=== PATIENT | female | born 1940 | race Caucasian/White ===

== ENCOUNTER 2016-03-13 20:02 | Inpatient (IN) | payer OTHER ==
[~2016-03-13] VITALS: Ht 157.5 cm; Wt 68.9 kg
[2016-03-13] MEDS ORDERED: MoRPHine SULFATE 4 MG/ML 1 ML CARP\\VIAL IV STA (20:34)
[2016-03-13 20:59] LABS: BASO % 0.2 %; BASO ABS # 0.02 K/uL (0-0.2); COMPLETE YES; EOS % 0.6 %; IG% 0.5 %; LYMPH ABS # 2.03 K/uL (1.2-3.4); MEAN CELL VOLUME 86.1 fL (80-100); MEAN CORPUSCULAR HEMOGLOBIN 28.8 pg (25-34); MEAN CORPUSCULAR HGB CONC 33.4 g/dl (32-36); MEAN PLATELET VOLUME 9.5 fL (7.4-10.4); MONO % 4.7 %; PLATELET COUNT 196 K/uL (130-400); RED BLOOD COUNT 4.76 M/uL (4.2-5.4); WHITE BLOOD COUNT 12.67 K/uL (4.8-10.8)
[2016-03-13 21:07] LABS: PROTHROMBIN TIME (PATIENT) 10.6 SECONDS (9.0-12.0)
[2016-03-13 21:19] LABS: BUN/CREATININE RATIO 13.9 (10-20); CALCIUM 9.3 mg/dl (8.5-10.1); CREATININE 0.98 mg/dl (0.60-1.20); POTASSIUM 3.9 mmol/L (3.5-5.1)
[2016-03-13 21:22] LABS: ALB/GLOB RATIO 1.2 (0.9-2)
--- NOTE | 2016-03-13 22:10 | DIAGNOSTIC IMAGING REPORT ---
PELVIS 1 OR 2 VIEW ROUTINE CLINICAL HISTORY: Left hip pain following fall. COMPARISON STUDY: No previous studies for comparison. FINDINGS: The sacroiliac joints and symphysis pubis are intact. There is a displaced angulated acute left femoral neck fracture. No additional fractures are identified on this exam. IMPRESSION: Moderately displaced acute left femoral neck fracture. Electronically signed by: Raji Cantu M.D. 03/13/2016 10:08 PM Dictated Date/Time: 03/13/2016 10:06 PM
--- NOTE | 2016-03-13 22:11 | DIAGNOSTIC IMAGING REPORT ---
LEFT FEMUR 2 VIEWS ROUTINE CLINICAL HISTORY: Left hip pain following fall. COMPARISON: None FINDINGS: There is an acute moderately displaced left femoral neck fracture. No additional left femoral fractures are identified on this exam. IMPRESSION: Acute moderately displaced left femoral neck fracture. Electronically signed by: Raji Cantu M.D. 03/13/2016 10:09 PM Dictated Date/Time: 03/13/2016 10:08 PM
--- NOTE | 2016-03-13 22:25 | DIAGNOSTIC IMAGING REPORT ---
CHEST ONE VIEW PORTABLE CLINICAL HISTORY: Fall. COMPARISON STUDY: No previous studies for comparison. FINDINGS: There is no pneumothorax or pleural effusion. There is no evidence of pulmonary edema. No consolidation is identified. There is borderline cardiomegaly. IMPRESSION: 1. No acute findings. 2. Borderline cardiomegaly. Electronically signed by: Raji Cantu M.D. 03/13/2016 10:23 PM Dictated Date/Time: 03/13/2016 10:22 PM
[2016-03-13] MEDS ORDERED: MULT-240 PO (22:29)
[2016-03-13] MEDS ORDERED: SIMV20TA2 PO (22:29)
[2016-03-13] MEDS ORDERED: METO1TAB69 PO (22:29)
[2016-03-13] MEDS ORDERED: ASPI81TA28 PO (22:29)
[2016-03-13] MEDS ORDERED: AMLO-114 PO (22:29)
[2016-03-13] MEDS ORDERED: PRVHFAIN INH (22:29)
[2016-03-13] MEDS ORDERED: DOCU-94 PO (22:29)
[2016-03-13] MEDS ORDERED: CARB25TA12 PO (22:29)
[2016-03-13] MEDS ORDERED: LEVO25TA5 PO (22:29)
[2016-03-13] MEDS ORDERED: GLYCDRO6 OP (22:29)
[2016-03-13] MEDS ORDERED: CLR10 PO (22:29)
[2016-03-13] MEDS ORDERED: ALEN70TA4 PO (22:29)
[2016-03-13] MEDS ORDERED: BUPR-267 PO (22:29)
[2016-03-13] MEDS ORDERED: RANI300T2 PO (22:29)
[2016-03-13 22:48] LABS: MAGNESIUM 2.2 mg/dl (1.8-2.4)
[2016-03-13] MEDS ORDERED: HYDROmorphone INJ 0.5 MG/0.5 ML SYR IV PRN (23:00)
[2016-03-13] MEDS ORDERED: ONDANSETRON INJ 2 MG/ML 2 ML VIAL IV PRN (23:00)
[2016-03-13] MEDS ORDERED: ARTIFICIAL TEARS OP SOLN OP PRN ×2 (23:00)
[2016-03-13] MEDS ORDERED: ACETAMINOPHEN 325 MG TAB PO PRN (23:00)
[2016-03-13] MEDS ORDERED: TRAMADOL HCL 50 MG TAB PO PRN (23:00)
[2016-03-13 23:06] LABS: THYROID STIMULATING HORMONE 2.32 uIu/ml (0.300-4.500)
--- NOTE | 2016-03-13 23:16 | EMERGENCY ROOM VISIT NOTE ---
History First contact with patient: 20:15 Chief Complaint: HIP PAIN Stated Complaint: FALL/ LF HIP PAIN History of Present Illness The patient is a 75 year old female who presents to the Emergency Room with complaints of left side pain. The patient reports that she was playing with her dog when she fell, landing onto her left hip. She states that she has pain in her left hip and has been unable to walk. She did not hit her head when she fell. She denies any other injuries. She states she does have a history of Parkinson's and has difficulty with balance due to this. She reports the fall was mechanical in nature and was not associated with any dizziness or lightheadedness. She denies any chest pain, shortness of breath, abdominal pain , nausea, vomiting or headache. Review of Systems A complete 10-point Review of Systems was discussed with the patient, with pertinent positives and negatives listed in the History of Present Illness. All remaining Review of Systems questions can be considered negative unless otherwise specified. Past Medical/Surgical History Medical Problems: (1) Femoral fracture Social History Smoking Status: Never Smoker Current/Historical Medications Scheduled Alendronate Sodium (Fosamax), 70 MG PO WK Amlodipine (Norvasc), 10 MG PO DAILY Aspirin (Aspirin Ec), 81 MG PO HS Bupropion Hcl (Bupropion Hcl Er), 150 MG PO BID Carbidopa/Levodopa (Sinemet 25MG/100MG), 2 TABS PO TIDM Docusate Sodium (Colace), 100 MG PO HS Levothyroxine Sodium (Levothyroxine Sodium), 25 MCG PO DAILY Loratadine (Claritin), 10 MG PO HS Metoprolol Succ (Toprol Xl) (Toprol-Xl ), 100 MG PO DAILY Multiple Vitamins W/ Minerals (Womens One Daily), 1 TAB PO DAILY Ranitidine Hcl (Zantac), 300 MG PO BID Simvastatin (Zocor), 20 MG PO HS Scheduled PRN Albuterol (Ventolin Hfa), 2 PUFFS INH Q4H PRN for Wheezing Poigexfc-Vdpcxnwxjspx-Tcuxwotr (Artificial Tears), 1 DROP OP UD PRN for Dry Eye( s) Allergies Coded Allergies: Nitrofurantoin (Verified Allergy, Mild, Rash, 03/13/16) Physical Exam Vital Signs Date Time Temp Pulse Resp B/P Pulse Ox O2 Delivery O2 Flow Rate FiO2 03/13/16 20:09 36.4 88 18 100/56 92 Room Air Physical Exam VITALS: Vitals are noted on the nurse's note and reviewed by myself. Vital signs stable. GENERAL: This is a 75-year-old female, in no acute distress, nondiaphoretic, well-developed well-nourished. SKIN: Capillary reflex less than 2 seconds. HEART: Regular rate and rhythm without murmurs gallops or rubs. LUNGS: Clear to auscultation bilaterally without wheezes, rales or rhonchi. MUSCULOSKELETAL: The left leg is shortened and externally rotated. Significant tenderness with palpation of the left hip. Dorsalis pedis pulses intact. NEURO: Patient was alert and oriented to person place and time. Normal sensation to light and sharp touch. No focal neurological deficits. Medical Decision & Procedures ER Provider Diagnostic Interpretation: LEFT FEMUR 2 VIEWS ROUTINE FINDINGS: There is an acute moderately displaced left femoral neck fracture. No additional left femoral fractures are identified on this exam. IMPRESSION: Acute moderately displaced left femoral neck fracture. PELVIS 1 OR 2 VIEW ROUTINE FINDINGS: The sacroiliac joints and symphysis pubis are intact. There is a displaced angulated acute left femoral neck fracture. No additional fractures are identified on this exam. IMPRESSION: Moderately displaced acute left femoral neck fracture. CHEST ONE VIEW PORTABLE IMPRESSION: 1. No acute findings. 2. Borderline cardiomegaly. Laboratory Results 03/13/16 20:40 Red Blood Count 4.76, Mean Corpuscular Volume 86.1, Mean Corpuscular Hemoglobin 28.8, Mean Corpuscular Hemoglobin Concent 33.4, Mean Platelet Volume 9.5, Neutrophils (%) (Auto) 78.0, Lymphocytes (%) (Auto) 16.0, Monocytes (%) (Auto) 4.7, Eosinophils (%) (Auto) 0.6, Basophils (%) (Auto) 0.2, Neutrophils # (Auto) 9.89, Lymphocytes # (Auto) 2.03, Monocytes # (Auto) 0.60, Eosinophils # (Auto) 0.07, Basophils # (Auto) 0.02 03/13/16 20:40 Test 03/13/16 20:40 White Blood Count 12.67 K/uL (4.8-10.8) Red Blood Count 4.76 M/uL (4.2-5.4) Hemoglobin 13.7 g/dL (12.0-16.0) Hematocrit 41.0 % (37-47) Mean Corpuscular Volume 86.1 fL (80-100) Mean Corpuscular Hemoglobin 28.8 pg (25-34) Mean Corpuscular Hemoglobin Concent 33.4 g/dl (32-36) Platelet Count 196 K/uL (130-400) Mean Platelet Volume 9.5 fL (7.4-10.4) Neutrophils (%) (Auto) 78.0 % Lymphocytes (%) (Auto) 16.0 % Monocytes (%) (Auto) 4.7 % Eosinophils (%) (Auto) 0.6 % Basophils (%) (Auto) 0.2 % Neutrophils # (Auto) 9.89 K/uL (1.4-6.5) Lymphocytes # (Auto) 2.03 K/uL (1.2-3.4) Monocytes # (Auto) 0.60 K/uL (0.11-0.59) Eosinophils # (Auto) 0.07 K/uL (0-0.5) Basophils # (Auto) 0.02 K/uL (0-0.2) RDW Standard Deviation 42.4 fL (36.4-46.3) RDW Coefficient of Variation 13.4 % (11.5-14.5) Immature Granulocyte % (Auto) 0.5 % Immature Granulocyte # (Auto) 0.06 K/uL (0.00-0.02) Prothrombin Time 10.6 SECONDS (9.0-12.0) Prothromb Time International Ratio 1.0 (0.9-1.1) Activated Partial Thromboplast Time 25.0 SECONDS (21.0-31.0) Partial Thromboplastin Ratio 1.0 Anion Gap 11.0 mmol/L (3-11) Est Creatinine Clear Calc Drug Dose 45.1 ml/min Estimated GFR () 65.4 Estimated GFR (Non- 56.4 BUN/Creatinine Ratio 13.9 (10-20) Calcium Level 9.3 mg/dl (8.5-10.1) Magnesium Level 2.2 mg/dl (1.8-2.4) Total Bilirubin 0.3 mg/dl (0.2-1) Aspartate Amino Transf (AST/SGOT) 13 U/L (15-37) Alanine Aminotransferase (ALT/SGPT) 23 U/L (12-78) Alkaline Phosphatase 87 U/L (45-117) Total Protein 7.4 gm/dl (6.4-8.2) Albumin 4.1 gm/dl (3.4-5.0) Globulin 3.3 gm/dl (2.5-4.0) Albumin/Globulin Ratio 1.2 (0.9-2) Medications Administered Medications (Trade) Dose Ordered Sig/Shawna Route Start Time Stop Time Status Last Admin Dose Admin Morphine Sulfate (MoRPHine SULFATE INJ) 4 mg NOW STAT IV 03/13/16 20:34 03/13/16 20:36 DC 03/13/16 21:07 4 MG Medical Decision Differential diagnosis includes fracture, strain, contusion among others. The patient was evaluated as above. Labs were drawn and IV access was obtained. Imaging studies were performed and read by radiology as above. The patient was medicated with 4 mg morphine IV with good control of her pain. The patient was reassessed multiple times during their stay in the emergency department and remained in stable condition. The patient is a 75-year-old female who presents today complaining of left hip pain status post a fall. Imaging studies showed a moderately displaced left femoral neck fracture. Preop labs, EKG and chest x-ray were performed. I discussed the patient with Dr. Hu, who did recommend adding a type and screen and admitting the patient to medicine. The case was discussed with the on-call [facility] hospitalist, who agreed to evaluate the patient. The patient was independently evaluated by Dr. Vaughn, ED attending physician, who agreed with my assessment and treatment plan. Impression Primary Impression: Femoral fracture Departure Information Referrals Yesica Felix M.D. (PCP) Patient Instructions [facility]
[2016-03-13 23:45] VITALS: BP 160/73; PULSE 93; TEMP 36.7; O2SAT 91
--- NOTE | 2016-03-13 23:58 | HISTORY & PHYSICAL EXAMINATION ---
DATE OF ADMISSION: 03/13/2016 PRIMARY CARE PHYSICIAN: Dr. Isidro MARTIN obtained from px and records. CHIEF COMPLAINT: Left hip pain. HISTORY OF PRESENT ILLNESS: Medical history significant for Parkinson disease, hypertension, osteoporosis, reflux, hypothyroidism, and mood disorder. Patient was playing with a family dog today when she subsequently fell down landing on her left side, unable to get up with excruciating left-sided hip pain. No chest pain, no shortness of breath, no syncope. Brought to the Emergency Room. MEDICAL HISTORY: As above. SURGERIES: Hysterectomy, tonsillectomy, cataract surgery, tear duct opening. HOME MEDICATIONS: Include levothyroxine, carbidopa, amlodipine, metoprolol, hydroxyzine, ibuprofen, ranitidine, bupropion, Wellbutrin, multivitamins, Ventolin. ALLERGIES: MACROBID. FAMILY HISTORY: There is a family history of heart disease. PERSONAL AND SOCIAL HISTORY: Nonsmoker, no chronic intake of alcoholic beverages. 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 REVIEW OF SYSTEMS: As per HPI, all other ROS negative. FUNCTIONAL HISTORY: Still able to do housework without chest pain/sob either on exertion and at rest. PHYSICAL EXAMINATION: VITAL SIGNS: Blood pressure was noted to be 100/70 pulse rate 88, RR 18, temperature 36.7, sats 98 on room air. GENERAL: Noted to be slightly uncomfortable, no respiratory distress. SKIN: Normal color. HEENT: [place] palpebral conjunctivae. Dry mucosa. NECK: No JVD. Supple. CHEST: Clear to auscultation. HEART: Regular rate and rhythm. ABDOMEN: Soft. EXTREMITIES: Tenderness on the left hip. NEUROLOGIC: rest tremors in the hands. LABS: Hemoglobin 13, hematocrit 40, white cells 12.6, platelets 200 Sodium 140, potassium 3.9, chloride 100 BUN 40, creatinine 1, glucose 100. IMAGING DATA: Hip x-ray - left femoral fracture. CXR cardiomegaly EKG, no ischemia. ASSESSMENT: 1. Left femoral fracture secondary to mechanical fall underlying osteoporosis 2. hypertension, stable 3. Parkinson disease on meds deterioration in the last few months PLAN: [facility] Orthopedics consult. ER provider has already discussed the case with Dr. Hu. Possible surgery in the morning. No medical contraindication to contemplated procedure check Vitamin D level DVT prophylaxis, Lovenox subQ. Full code. PX's daughter requesting for updates from providers. Miss Malena Zapata at . [facility]
[2016-03-14] VITALS (7 sets, daily range): BP systolic 114–139; BP diastolic 63–79; PULSE 82–103; TEMP 36.3–36.9; O2SAT 94–98; Ht 157.5 cm; Wt 68.9 kg
[2016-03-14] MEDS ORDERED: SIMVASTATIN 20 MG TAB PO ONE
[2016-03-14] MEDS: KETOROLAC TROMETHAMINE 15 MG/ML VIAL IV. PRN ×2 (00:26→08:21)
[2016-03-14] MEDS: LACTATED RINGER'S 1000ML 1,000 ML IV SCH ×2 (00:27→19:27)
[2016-03-14] MEDS: CYCLOBENZAPRINE HCL 5 MG TAB PO PRN ×3 (02:32→13:37)
[2016-03-14] MEDS: LEVOTHYROXINE 25 MCG TAB PO SCH (05:56)
[2016-03-14] MEDS ORDERED: NURSING VERBAL MED ORDER ONE ×3 (07:15→15:15)
[2016-03-14 07:29] LABS: BASO % 0.1 %; BASO ABS # 0.02 K/uL (0-0.2); COMPLETE YES; EOS % 0.4 %; HEMATOCRIT 38.4 % (37-47); IG% 0.3 %; LYMPH % 7.6 %; LYMPH ABS # 1.09 K/uL (1.2-3.4); MEAN CELL VOLUME 86.1 fL (80-100); MEAN CORPUSCULAR HEMOGLOBIN 28.5 pg (25-34); MEAN CORPUSCULAR HGB CONC 33.1 g/dl (32-36); MONO % 5.5 %; NEUT % 86.1 %; PLATELET COUNT 162 K/uL (130-400); RED BLOOD COUNT 4.46 M/uL (4.2-5.4); WHITE BLOOD COUNT 14.36 K/uL (4.8-10.8)
[2016-03-14] MEDS: CARBIDOPA/LEVODOPA 25/100MG TAB PO SCH ×3 (08:30→17:45)
[2016-03-14] MEDS: CEROVITE ADV FORMULA TAB PO SCH (08:45)
[2016-03-14] MEDS: BuPROPion SR 150 MG TABCR PO SCH ×2 (08:45→21:41)
[2016-03-14] MEDS: AMLODIPINE BESYLATE 5 MG TAB PO SCH (08:45)
[2016-03-14] MEDS: RANITIDINE HCL 150 MG TAB PO SCH ×2 (08:45→21:38)
[2016-03-14] MEDS: METOPROLOL SUCC 50MG EXT REL TAB PO SCH (08:45)
[2016-03-14] MEDS: CALCIUM 600MG + VIT D 400 IU TAB PO SCH ×2 (08:45→21:39)
[2016-03-14] MEDS ORDERED: ENOXAPARIN 40 MG/0.4 ML SYR SQ SCH (09:00)
[2016-03-14] MEDS ORDERED: METOPROLOL SUCC 50MG EXT REL TAB PO SCH (09:00)
[2016-03-14] MEDS ORDERED: LORAZEPAM INJ 0.5 MG in SYRINGE 0.75 ML IV STA (09:28)
[2016-03-14] MEDS ORDERED: LORAZEPAM INJ 0.5 MG in SYRINGE 0.75 ML IV PRN (09:30)
--- NOTE | 2016-03-14 09:43 | Progress Note ---
Subjective Date of Service: Mar 14, 2016. Subjective Pt evaluation today including: conversation w/ patient, physical exam, lab review, review of studies, review of inpatient medication list Saw/examined the patient in room 387 Doing well today; states she had a fall yesterday while playing with her dog Underlying resting tremor is at baseline +anxious/anxiety secondary to upcoming surgery Pain is controlled; increase in pain during tremor episodes Review of Systems Constitutional: No chills, No fever Respiratory: No shortness of breath Cardiac: No chest pain Abdomen: No diarrhea, No nausea, No pain, No vomiting Musculoskeletal: + joint pain (left hip; controlled with medications) Neurologic: + balance problems (chronic) Psychiatric: + anxiety, No insomnia Heme: No abnormal bleeding/bruising Medications Current Inpatient Medications Medications (Trade) Dose Ordered Sig/Shawna Route Start Time Stop Time Status Last Admin Dose Admin Enoxaparin Sodium (Lovenox Inj) 40 mg Q24H SQ 03/14/16 09:00 04/13/16 08:59 Future hold Acetaminophen (Tylenol Tab) 650 mg Q4H PRN PO 03/13/16 23:00 04/12/16 22:59 03/14/16 00:23 650 MG Calcium/Vitamin D (Caltrate Plus Tab) 1 tab BID PO 03/14/16 09:00 04/13/16 08:59 Ondansetron HCl (Zofran Inj) 4 mg Q6H PRN IV 03/13/16 23:00 04/12/16 22:59 Tramadol HCl (Ultram Tab) 25 mg Q6H PRN PO 03/13/16 23:00 04/12/16 22:59 Hydromorphone HCl (Dilaudid Inj) 0.5 mg Q3H PRN IV 03/13/16 23:00 03/27/16 22:59 Ketorolac Tromethamine 15 mg 15 mg Q6H PRN IV. 03/13/16 23:00 03/18/16 22:59 03/14/16 08:21 15 MG Lactated Ringer's (Lr 1000ml) 1,000 ml @ 50 mls/hr Q20H IV 03/13/16 23:00 04/12/16 22:59 03/14/16 00:27 50 MLS/HR Amlodipine Besylate (Norvasc Tab) 10 mg DAILY PO 03/14/16 09:00 04/13/16 08:59 Bupropion HCl (Wellbutrin-Sr Tab) 150 mg BID PO 03/14/16 09:00 04/13/16 08:59 Carbidopa/Levodopa (Sinemet 25/ 100MG Tab) 2 tab TIDM PO 03/14/16 08:00 04/13/16 07:59 Docusate Sodium (coLACE CAP) 100 mg HS PO 03/14/16 21:00 04/13/16 20:59 Levothyroxine Sodium (Synthroid Tab) 25 mcg DAILYBB PO 03/14/16 06:00 04/13/16 05:59 Loratadine (Claritin Tab) 10 mg HS PO 03/14/16 21:00 04/13/16 20:59 Multivitamins/ Minerals (Multivitamin W/ Minerals Tab) 1 tab DAILY PO 03/14/16 09:00 04/13/16 08:59 Ranitidine HCl (zANTac TAB) 300 mg BID PO 03/14/16 09:00 04/13/16 08:59 Simvastatin (Zocor Tab) 20 mg HS PO 03/14/16 21:00 04/12/16 20:59 Artificial Tears (Artificial Tears) 1 drops UD PRN OP 03/13/16 23:00 04/12/16 22:59 Metoprolol Succinate (Toprol Xl Tab) 100 mg DAILY PO 03/14/16 09:00 04/13/16 08:59 Cyclobenzaprine HCl 5 mg 5 mg TID PRN PO 03/14/16 02:15 04/13/16 02:14 03/14/16 02:32 5 MG Lorazepam 0.5 mg/ Syringe 1 ml @ 0.5 mls/min Q4 PRN IV 03/14/16 09:30 04/13/16 09:29 Cefazolin Sodium (Ancef 1000mg/55 ml D5W) 55 ml @ 100 mls/hr PREOP IV 03/15/16 06:00 03/15/16 18:00 Objective Vital Signs Date Time Temp Pulse Resp B/P Pulse Ox O2 Delivery O2 Flow Rate FiO2 03/14/16 07:28 36.9 82 18 139/68 94 Nasal Cannula 2.0 03/14/16 07:28 Nasal Cannula 2.0 03/14/16 00:00 Nasal Cannula 2.0 03/14/16 00:00 Nasal Cannula 2.0 03/13/16 23:45 36.7 93 16 160/73 91 Nasal Cannula 2.0 03/13/16 23:35 77 18 148/76 96 03/13/16 22:00 79 18 145/91 96 Nasal Cannula 2.0 03/13/16 21:05 96 Nasal Cannula 2.0 03/13/16 20:09 36.4 88 18 100/56 92 Room Air Physical Exam General Appearance: no apparent distress, + pertinent finding (+anxiety; + resting tremors) Respiratory/Chest: lungs clear, normal breath sounds, no respiratory distress, no accessory muscle use Cardiovascular: regular rate, rhythm, no edema, no murmur Abdomen: normal bowel sounds, non tender, soft Extremities: normal inspection, no pedal edema Laboratory Results Last 24 Hours Test 03/13/16 20:40 03/14/16 06:30 White Blood Count 12.67 K/uL 14.36 K/uL Red Blood Count 4.76 M/uL 4.46 M/uL Hemoglobin 13.7 g/dL 12.7 g/dL Hematocrit 41.0 % 38.4 % Mean Corpuscular Volume 86.1 fL 86.1 fL Mean Corpuscular Hemoglobin 28.8 pg 28.5 pg Mean Corpuscular Hemoglobin Concent 33.4 g/dl 33.1 g/dl Platelet Count 196 K/uL 162 K/uL Mean Platelet Volume 9.5 fL 10.0 fL Neutrophils (%) (Auto) 78.0 % 86.1 % Lymphocytes (%) (Auto) 16.0 % 7.6 % Monocytes (%) (Auto) 4.7 % 5.5 % Eosinophils (%) (Auto) 0.6 % 0.4 % Basophils (%) (Auto) 0.2 % 0.1 % Neutrophils # (Auto) 9.89 K/uL 12.35 K/uL Lymphocytes # (Auto) 2.03 K/uL 1.09 K/uL Monocytes # (Auto) 0.60 K/uL 0.79 K/uL Eosinophils # (Auto) 0.07 K/uL 0.06 K/uL Basophils # (Auto) 0.02 K/uL 0.02 K/uL RDW Standard Deviation 42.4 fL 42.0 fL RDW Coefficient of Variation 13.4 % 13.3 % Immature Granulocyte % (Auto) 0.5 % 0.3 % Immature Granulocyte # (Auto) 0.06 K/uL 0.05 K/uL Prothrombin Time 10.6 SECONDS Prothromb Time International Ratio 1.0 Activated Partial Thromboplast Time 25.0 SECONDS Partial Thromboplastin Ratio 1.0 Sodium Level 141 mmol/L Potassium Level 3.9 mmol/L Chloride Level 105 mmol/L Carbon Dioxide Level 25 mmol/L Anion Gap 11.0 mmol/L Blood Urea Nitrogen 14 mg/dl Creatinine 0.98 mg/dl Est Creatinine Clear Calc Drug Dose 45.1 ml/min Estimated GFR () 65.4 Estimated GFR (Non- 56.4 BUN/Creatinine Ratio 13.9 Random Glucose 107 mg/dl Calcium Level 9.3 mg/dl Magnesium Level 2.2 mg/dl Total Bilirubin 0.3 mg/dl Aspartate Amino Transf (AST/SGOT) 13 U/L Alanine Aminotransferase (ALT/SGPT) 23 U/L Alkaline Phosphatase 87 U/L Total Protein 7.4 gm/dl Albumin 4.1 gm/dl Globulin 3.3 gm/dl Albumin/Globulin Ratio 1.2 25-Hydroxy Vitamin D Total 23.4 ng/ml Thyroid Stimulating Hormone (TSH) 2.320 uIu/ml Assessment and Plan This is a 75 year old female with PMH of Parkinson's, HTN, HLD, CKD stage 3, hypothyroidism, osteoporosis, GERD presents with left femur fracture secondary to fall Left Femoral Fracture secondary to Mechanical Fall * patient with fall while playing with dog * uses cane/walker for ambulation due to underlying Parkinson's * pain is currently controlled * appreciate ortho input - plan is for surgery later today (03/14) * +anxiety due to surgery; Wellbutrin held this morning * Added low dose Ativan HTN * blood pressures labile due to pain * continue home medications and monitor (norvasc, metoprolol) Hypothyroidism * TSH wnl * continue home dose of synthroid CKD stage 3 * creat at baseline * continue LR DVT ppx * hold medical prophylaxis due to upcoming surgery * post-operative DVT ppx as per ortho FULL CODE Patient's daughter requesting for updates from providers. Malena Zapata at
--- NOTE | 2016-03-14 10:27 | CONSULTATION REPORT ---
DATE OF CONSULTATION: 03/14/2016 STAT ORTHOPEDIC CONSULTATION CHIEF COMPLAINT: Left hip pain. HISTORY OF PRESENT ILLNESS: Marion is a 75-year-old female from [place], that sustained a fall on her left lower extremity, injuring her left hip. She has never had any type of lower extremity injury in the past that she is aware of or that required further treatment. She admits to pain with any type of active or passive motion of the left lower extremity with pain directly to her left groin. She experiences intermittent spasms in her left thigh secondary to her injury. She denies numbness or tingling in the lower extremity and denies any calf pain. PAST MEDICAL HISTORY: Includes Parkinson's disease, hypertension, osteoporosis, GERD, hypothyroid, mood disorder, hyperlipidemia. Has a history of anxiety, history of hiatal hernia and history of osteoarthritis. PAST SURGICAL HISTORY: Reveals hysterectomy, tonsillectomy, cataract surgery and tear duct opening. She had a heart catheterization in [place] in 2007. FAMILY HISTORY: Noncontributory. SOCIAL HISTORY: The patient lives at home in a safe environment. She is able to do daily housework without any notable exertion. She denies tobacco or alcohol use. 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 She is a Rastafarian. MEDICATIONS: Include: 1. Albuterol/Ventolin HFA 2 puffs q. 4 h. 2. Fosamax 70 mg tab weekly. 3. Norvasc 10 mg tab daily. 4. Aspirin 81 mg tab at bedtime. 5. Bupropion 150 mg tabs twice daily. 6. Sinemet 25/100 mg tabs 3 times daily. 7. Colace 100 mg tab at bedtime. 8. Artificial tears in both eyes daily. 9. Levothyroxine 25 mcg tab daily. 10. Claritin 10 mg tab at bedtime. 11. Metoprolol 100 mg tab daily. 12. Multivitamin. 13. Zantac 300 mg tab twice daily. 14. Zocor 20 mg tab at bedtime. ALLERGIES: NITROFURANTOIN. REVIEW OF SYSTEMS: The patient denies headache, chest pain, shortness of breath, fevers, chills or night sweats. PHYSICAL EXAMINATION: GENERAL: The patient is an alert and oriented x3 female. She is in no acute distress, pleasant, appears her currently stated age. SKIN: The patient's left hip does not reveal any significant finding such as notable swelling, erythema, ecchymosis, abrasion, laceration, skin breakdown, skin lesions or openings in the skin. NEUROVASCULAR: Exam of the left lower extremity reveals distal pulses +2. Capillary refill is under 2 seconds. Good sensation with light touch. Toes fully mobile. +5 strength in dorsi and plantar flexion. Calf supple, nontender. Knee is atraumatic. MUSCULOSKELETAL: The left hip, the patient has pain in the left groin with any type of active or passive motion of the left hip. Imaging reveals a moderately displaced left femoral neck fracture. IMPRESSION: Left hip fracture. PLAN: The patient will undergo a left hip hemiarthroplasty on 03/14/2016 [address] be performed by Dr. Desmond Hu from [facility]. She is currently placed on n.p.o. diet. Preoperative antibiotics have been ordered with Ancef 1 gram IV on-call to OR. Her Lovenox has been discontinued. Consents have been signed accordingly. The patient is in agreement to proceed with surgical intervention. We will continue with pain control and continue to follow orthopedically. Any other questions or concerns, please notify [facility] at [phone]. I, Dr. Hu, saw and examined the patient and discussed the management with my PA. I reviewed my PAs note and agree with the documented findings and the plan of care I developed. After a lengthy discussion with the patient regarding the risks and benefits of surgical and nonsurgical treatment were discussed. Specifically the risks of surgery include infection, bleeding, nerve damage, continued pain, dislocation, decreased level of ambulation, DVT, and . She also understands that there is a mortality rate associated with hip fracture 2030% in the next year. She like to proceed with surgery and the informed consent was signed. LUANN
[2016-03-14] MEDS ORDERED: CEFAZOLIN SOD 1000MG/55 ML D5W IV ONE (14:37)
[2016-03-14] MEDS ORDERED: MIDAZOLAM HCL 1 MG/ML 2ML VIAL ONE (15:13)
[2016-03-14] MEDS ORDERED: FENTANYL CITRATE INJ 50 MCG/1 ML 2 ML VIAL ONE (15:13)
[2016-03-14] MEDS ORDERED: LIDOCAINE HCL 2% 2 ML VIAL (20MG/ML) ONE (16:09)
[2016-03-14] MEDS ORDERED: PROPOFOL IV EMULSION 10 MG/ML 20 ML VIAL IV ONE (16:09)
--- NOTE | 2016-03-14 17:13 | DIAGNOSTIC IMAGING REPORT ---
INTRAOPERATIVE LEFT HIP SINGLE VIEW CLINICAL HISTORY: LEFT TOTAL HIP COMPARISON: AP pelvis dated 03/13/2016 DISCUSSION: A single intraoperative fluoroscopic spot image demonstrates a bipolar left hip prosthesis. There is a fracture the greater trochanter with moderate distraction. No dislocation is visualized. There is a surgical soft tissue defect. IMPRESSION: Bipolar left hip arthroplasty. Distracted fracture of the greater trochanter. Electronically signed by: Augie Nobles M.D. 03/14/2016 5:11 PM Dictated Date/Time: 03/14/2016 5:09 PM
[2016-03-14] MEDS ORDERED: MIX:1% LIDO W/EPI 20ML & 0.5% BUP INJ ONE (17:40)
[2016-03-14] MEDS ORDERED: POVIDONE-IODINE OP SOLN 30 ML BTL TOP ONE (17:44)
[2016-03-14] MEDS ORDERED: PHENYLEPHRINE HCL INJ 10 MG/ML VIAL ONE (17:52)
[2016-03-14] MEDS ORDERED: PHENYLEPHRINE 100MCG/ML 5ML SYR ONE (17:52)
[2016-03-14] MEDS ORDERED: ALUMINUM/MAGNESIUM/SIMETH (MAALOX MAX) 30 ML UDC PO PRN (18:15)
[2016-03-14] MEDS ORDERED: DiphenhydrAMINE HCL 50 MG/ML VIAL IV PRN (18:15)
[2016-03-14] MEDS ORDERED: METOCLOPRAMIDE HCL INJ 5 MG/ML 2 ML VIAL IV PRN (18:15)
[2016-03-14] MEDS ORDERED: ONDANSETRON INJ 2 MG/ML 2 ML VIAL IV PRN ×2 (18:15→18:30)
[2016-03-14] MEDS ORDERED: SOD PHOSPHATE/SOD BIPHOSPHATE ENEMA 132 ML BTL PR PRN (18:15)
[2016-03-14] MEDS ORDERED: ACETAMINOPHEN 325 MG TAB PO PRN (18:15)
[2016-03-14] MEDS ORDERED: BISACODYL 10 MG SUPP PR PRN (18:15)
[2016-03-14] MEDS ORDERED: ALBUTEROL HFA 8 GM INHALER INH PRN (18:15)
[2016-03-14] MEDS ORDERED: MAGNESIUM HYDROXIDE SUSP 30 ML UDC PO PRN (18:15)
--- NOTE | 2016-03-14 18:27 | [facility] Post Operative Brief Note ---
Immediate Operative Summary Operative Date Mar 14, 2016. Pre-Operative Diagnosis Left femoral fracture secondary to mechanical fall; underlying osteoporosis Post-Operative Diagnosis Left femoral fracture secondary to mechanical fall; underlying osteoporosis Procedure(s) Performed Left Hip Hemiarthoplasty - cemented Surgeon Dr. Hu Operation Research Analyst Surgeon(s) Tray Najera PA-C (No fellow avail) Estimated Blood Loss 100ml Findings Comminuted and displaced left femoral neck fracture. Specimens A. Left femoral head Drains n/a Anesthesia Spinal Complication(s) None Disposition Recovery Room / PACU (Stable)
--- NOTE | 2016-03-14 18:27 | [facility] Operative Report ---
Operative Report Operative Date Mar 14, 2016. Pre-Operative Diagnosis Left femoral fracture secondary to mechanical fall; underlying osteoporosis Post-Operative Diagnosis same Procedure(s) Performed Left hip cemented hemiarthroplasty Surgeon Dr. Hu Locomotive Pipe Fitter Surgeon(s) Tray Najera PA-C Estimated Blood Loss 100ml Findings same Specimens A. Left femoral head Drains none Anesthesia spinal, MAC Complication(s) None Disposition Recovery Room / PACU Indications sustained fall, admitted under medicine, xrays obtained, surgery recommended, consents signed Description of Procedure taken to the OR, prepped and draped, I was present the entire case, please see Dr. Hu's op note for further detail I attest to the content of the Intraoperative Record and any orders documented therein. Any exceptions are noted below.
[2016-03-14] MEDS ORDERED: ATROPINE SULFATE 0.1 MG/ML 5ML SYR IV PRN (18:30)
[2016-03-14] MEDS ORDERED: FENTANYL CITRATE INJ 50 MCG/1 ML 2 ML VIAL IV PRN (18:30)
[2016-03-14] MEDS ORDERED: EpHEDrine SULFATE INJ 50 MG/ML AMP IV PRN (18:30)
--- NOTE | 2016-03-14 18:30 | [facility] Operative Report ---
Operative Report Operative Date Mar 14, 2016. Pre-Operative Diagnosis Left femoral fracture secondary to mechanical fall; underlying osteoporosis Post-Operative Diagnosis Same Procedure(s) Performed Left hip hemiarthroplasty, cemented. Surgeon Dr. Hu Skilled Nursing Case Manager Surgeon(s) Tray Najera PA-C (No fellow avail) Estimated Blood Loss 100ml Findings Comminuted, displaced left hip fracture. Specimens A. Left femoral head Drains n/a Anesthesia Spinal Complication(s) None Disposition Recovery Room / PACU (Stable) Indications The patient is a 75 year old female who sustained a Traumatic Osteoporotic fracture of left femoral neck in setting of ground level fall. After orthopedic consult discussing the patients treatment options of conservative versus surgical intervention, she agreed for a planned hemiarthroplasty. Since the patient was an ambulatory prior to the injury and to avoid the risks of bed sores, pulmonary complications, and to give the best chance for ambulation, I recommended surgery. The patient understands the risks of surgery, which include but are not limited to: bleeding, infection, re-operation, damage to nerves and arteries, continued pain, failure of the hardware, dislocation, DVT, and . In addition she is aware of the 20-30% morbidity associated with hip fracture for up to 1 year following a hip fracture. The patient understands all of these instructions and explanations, all of their questions have been satisfactorily addressed. The patient has elected to proceed with surgery and the informed consent was signed. Description of Procedure IMPLANTS: 1) 12 LDFX Cemented Stem (Ayde-[employer]). 2) 11 Distal Centralizer. 3) 47 mm Bipolar Shell. 4) 28 mm Head with +3.5 Neck. 5) Simplex Cement. PROCEDURE: The patient was taken to the Operating Room and placed in the lateral position with a nina bag following general anesthesia administration. A multidisciplinary time-out was performed identifying my initials on the left lower limb as the correct and operative limb. Prior to the incision being made , 2 grams of intravenous Ancef were given. The left lower extremity was prepped in the standard fashion. The trochanter was marked as was the planned incision 1/3 proximal and 2/3 distal to the tip of the greater trochanter. The incisions were injected with a 50:50 mixture of 1% Lidocaine epi and 0.5% Bupivacaine plain for a total of 10cc. A standard posterior approach was made. The planned incision was carried down through the Tensor Fascia Carolyne , which was then split in-line with its fibers. The Gluteus Polo was bluntly dissected. The Piriformis and short external rotators were dissected off the capsule and femur and tagged for later repair. The fracture was easily identified as it had impaled the posterior capsule. The capsule was incised and freed off the fracture fragments. The Neck cut was made to allow removal of the femoral head and comminuted fragments. The femoral canal was prepared with Box osteotome, followed by a canal finder. The femur was sequentially broached in the standard fashion, and trial heads were placed. Fluoroscopy was brought in to ensure adequate proper alignment, fill of the canal, head size, and leg length. Fluoroscopy showed good canal fill and good position of the components. The trial components were removed and the wound and femoral canal were copiously irrigated. The components were placed in the standard fashion and the hip reduced. There was excellent stability with no sense of dislocation with 25 degrees adduction, flexion 90 degrees, and internal rotation to 45 degrees. The wounds were copiously irrigated. The External rotators and capsule were closed over bone bridges with #2 FiberWire. The Tensor Fascia Carolyne was closed with #1 and 0 Vicryl. The subcutaneous fat had a few stay sutures placed using 0 Vicryl. The subcutaneous tissue was closed with 3-0 Vicryl. The skin was closed with ynes. The incisions were covered with Xerofoam, 4 x 4's, ABD and foam tape. The patient was transfer to her hospital bed and taken to the PACU in stable condition. The sponge and needle counts were correct. Post-op Instructions: The patient was admitted to back to the Med/Surg floor. Final x-rays will be obtained in the the PACU. The patient will be WBAT with a walker. The patient will be seen by PT/OT. The patient's labs will be checked in the am. DVT prophylaxis will be with TEDs, mechanical devices and will Lovenox in the AM. I attest to the content of the Intraoperative Record and any orders documented therein. Any exceptions are noted below.
--- NOTE | 2016-03-14 18:58 | DIAGNOSTIC IMAGING REPORT ---
AP pelvis and left hip 2 views CLINICAL HISTORY: Postop hip arthroplasty COMPARISON STUDY: No previous studies for comparison. FINDINGS: There are postsurgical changes of a bipolar left hip arthroplasty. The acetabular and femoral components appear well seated. There is no dislocation. There are overlying skin ynes. There is air within the soft tissues is consistent with history of recent surgery IMPRESSION: Postsurgical changes of a bipolar left hip arthroplasty. Electronically signed by: Augie Nobles M.D. 03/14/2016 6:56 PM Dictated Date/Time: 03/14/2016 6:55 PM
--- NOTE | 2016-03-14 20:29 | Anesthesiology Progress Note ---
Anesthesia Post Op Note Date & Time Mar 14, 2016 at 20:29 Vital Signs Pain Intensity: 0 Vital Signs Past 12 Hours Date Time Temp Pulse Resp B/P Pulse Ox O2 Delivery O2 Flow Rate FiO2 03/14/16 20:15 36.4 87 18 131/63 94 Nasal Cannula 3.0 03/14/16 19:45 36.5 103 18 114/65 95 Nasal Cannula 3.0 03/14/16 19:05 80 18 114/48 97 Nasal Cannula 2 03/14/16 18:55 36.7 82 19 137/62 95 Nasal Cannula 2 03/14/16 18:45 82 20 125/39 94 Nasal Cannula 2 03/14/16 18:35 79 16 106/47 95 Nasal Cannula 2 03/14/16 18:25 78 19 107/55 96 Nasal Cannula 2 03/14/16 18:15 76 17 115/64 96 Nasal Cannula 2 03/14/16 18:09 36.1 76 18 125/66 99 Mask 10 Notes Mental Status: alert / awake / arousable, participated in evaluation Pt Amnestic to Procedure: Yes Nausea / Vomiting: adequately controlled Pain: adequately controlled Airway Patency, RR, SpO2: stable & adequate BP & HR: stable & adequate Hydration State: stable & adequate Neuraxial Anesthesia: was administered, sensory block is resolving Anesthetic Complications: no major complications apparent
[2016-03-14] MEDS ORDERED: DOCUSATE SODIUM 100 MG CAP PO SCH (21:00)
[2016-03-14] MEDS: SIMVASTATIN 20 MG TAB PO SCH (21:39)
[2016-03-14] MEDS: LORATADINE 10 MG TAB PO SCH (21:40)
[2016-03-14] MEDS: DOCUSATE SODIUM 100 MG CAP PO SCH (21:41)
[2016-03-14] MEDS: SENNA 8.6 MG TAB PO SCH (21:47)
[2016-03-14] MEDS: D5W AND 1/2NSS + 20MEQ KCL 1,000 ML IV SCH (21:47)
[2016-03-14] MEDS: ASPIRIN 81 MG ECTAB PO SCH (21:48)
[2016-03-14] MEDS: OXYCODONE HCL IR 5 MG TAB (IMMEDIATE RELEASE) PO PRN (23:49)
[2016-03-14] MEDS: CEFAZOLIN IV 1,000 MG in DEXTROSE 5% 50ML 50 ML IV SCH (23:54)
[2016-03-15] VITALS (7 sets, daily range): BP systolic 109–145; BP diastolic 65–76; PULSE 87–105; TEMP 36.4–36.9; O2SAT 93–97
[2016-03-15] MEDS: MoRPHine SULFATE 2 MG/ML CARP IV PRN ×2 (00:24→05:22)
[2016-03-15] MEDS: CYCLOBENZAPRINE HCL 5 MG TAB PO PRN ×2 (04:00→20:36)
[2016-03-15] MEDS: LEVOTHYROXINE 25 MCG TAB PO SCH (05:24)
[2016-03-15] MEDS ORDERED: CEFAZOLIN 1000MG/55 ML D5W IV SCH (06:00)
[2016-03-15] MEDS ORDERED: CEFAZOLIN IV 1,000 MG in DEXTROSE 5% 50ML 50 ML IV SCH (06:00)
[2016-03-15] MEDS: OXYCODONE HCL IR 5 MG TAB (IMMEDIATE RELEASE) PO PRN ×2 (06:09→15:03)
[2016-03-15] MEDS: D5W AND 1/2NSS + 20MEQ KCL 1,000 ML IV SCH ×2 (06:10→15:50)
[2016-03-15 07:14] LABS: INR 1.1 (0.9-1.1); PROTHROMBIN TIME (PATIENT) 12.1 SECONDS (9.0-12.0)
[2016-03-15] MEDS: CEFAZOLIN IV 1,000 MG in DEXTROSE 5% 50ML 50 ML IV SCH ×2 (07:26→15:50)
[2016-03-15 07:37] LABS: BUN/CREATININE RATIO 12.6 (10-20); CALCIUM 8.1 mg/dl (8.5-10.1); CREATININE 0.72 mg/dl (0.60-1.20); POTASSIUM 3.5 mmol/L (3.5-5.1)
[2016-03-15] MEDS: CARBIDOPA/LEVODOPA 25/100MG TAB PO SCH ×3 (08:59→17:38)
[2016-03-15] MEDS: FERROUS GLUCONATE 324 MG TAB PO SCH ×3 (08:59→17:35)
[2016-03-15] MEDS: CALCIUM 600MG + VIT D 400 IU TAB PO SCH ×2 (08:59→20:36)
[2016-03-15] MEDS: DOCUSATE SODIUM 100 MG CAP PO SCH ×2 (09:00→20:35)
[2016-03-15] MEDS: CEROVITE ADV FORMULA TAB PO SCH (09:00)
[2016-03-15] MEDS ORDERED: MULTIVITAMIN TAB PO SCH (09:00)
[2016-03-15] MEDS: PANTOprazole SOD 40 MG TAB PO SCH (09:02)
[2016-03-15] MEDS: RANITIDINE HCL 150 MG TAB PO SCH ×2 (09:02→20:36)
[2016-03-15] MEDS: BuPROPion SR 150 MG TABCR PO SCH ×2 (09:02→20:35)
[2016-03-15] MEDS: AMLODIPINE BESYLATE 5 MG TAB PO SCH (09:04)
[2016-03-15] MEDS: METOPROLOL SUCC 50MG EXT REL TAB PO SCH (09:04)
--- NOTE | 2016-03-15 09:09 | Orthopedic Progress Note ---
Orthopedic Progress Note Date of Service Mar 15, 2016. Subjective Post OP Day: 1 Reports: complaints (Left hip pain but better than before surgery.), feeling well Objective calves soft nontender, N/V intact, dressing C/D/I, A&O x3 Per nurse and patient, pt was up and standing earlier today. Date Time Temp Pulse Resp B/P Pulse Ox O2 Delivery O2 Flow Rate FiO2 03/15/16 07:40 36.9 92 18 145/73 93 Nasal Cannula 2.5 03/15/16 03:53 36.4 89 14 129/71 96 Room Air 03/14/16 23:45 Nasal Cannula 3.0 03/14/16 23:42 36.3 90 20 127/75 95 Nasal Cannula 3.0 03/14/16 22:33 95 Nasal Cannula 3.0 03/14/16 22:25 36.3 87 18 134/76 98 Nasal Cannula 3.0 03/14/16 21:15 36.8 87 18 135/79 94 Nasal Cannula 3.0 03/14/16 20:15 36.4 87 18 131/63 94 Nasal Cannula 3.0 03/14/16 19:45 36.5 103 18 114/65 95 Nasal Cannula 3.0 03/14/16 19:15 82 Nasal Cannula 2.0 03/14/16 19:05 80 18 114/48 97 Nasal Cannula 2 03/14/16 18:55 36.7 82 19 137/62 95 Nasal Cannula 2 03/14/16 18:45 82 20 125/39 94 Nasal Cannula 2 03/14/16 18:35 79 16 106/47 95 Nasal Cannula 2 03/14/16 18:25 78 19 107/55 96 Nasal Cannula 2 03/14/16 18:15 76 17 115/64 96 Nasal Cannula 2 03/14/16 18:09 36.1 76 18 125/66 99 Mask 10 Laboratory Results 24 Hours: Test 03/15/16 06:50 Prothromb Time International Ratio 1.1 Prothrombin Time 12.1 SECONDS Assessment & Plan Assessment: POD #1, s/p L hip davin-arthroplasty, doing as well as expected. Plan: WBAT with walker. PT/OT. Maintain total hip precautions. Continue pain control. Resume diet. [place] d/c 03/15/16. Labs: pending. Change dressing 03/16/16 am. Keep covered in hospital. DVT prophylaxis: Start Lovenox 03/15/16 pm and continue for 3 weeks, then switch to ASA 325 BID for another 3 weeks. Continue care per primary service. D/C planning.
--- NOTE | 2016-03-15 10:14 | Progress Note ---
Subjective Date of Service: Mar 15, 2016. Subjective Pt evaluation today including: conversation w/ patient, conversation w/ family , physical exam, lab review, review of studies, review of inpatient medication list Saw/examined the patient in room 387 Doing well post-operatively No significant pain +muscle spasms Review of Systems Constitutional: No chills, No fever Respiratory: No cough, No shortness of breath, No sputum Cardiac: No chest pain, No edema, No palpitations Abdomen: No diarrhea, No nausea, No pain, No vomiting Musculoskeletal: + joint pain (left hip, controlled with medications), + problem reported (muscle spasms) Heme: No abnormal bleeding/bruising Medications Current Inpatient Medications Medications (Trade) Dose Ordered Sig/Shawna Route Start Time Stop Time Status Last Admin Dose Admin Calcium/Vitamin D 1 tab 1 tab BID PO 03/14/16 09:00 04/13/16 08:59 03/15/16 08:59 1 TAB Lactated Ringer's (Lr 1000ml) 1,000 ml @ 50 mls/hr Q20H IV 03/13/16 23:00 04/12/16 22:59 03/14/16 19:27 50 MLS/HR Amlodipine Besylate (Norvasc Tab) 10 mg DAILY PO 03/14/16 09:00 04/13/16 08:59 03/15/16 09:04 10 MG Bupropion HCl (Wellbutrin-Sr Tab) 150 mg BID PO 03/14/16 09:00 04/13/16 08:59 03/15/16 09:02 150 MG Carbidopa/Levodopa (Sinemet 25/ 100MG Tab) 2 tab TIDM PO 03/14/16 08:00 04/13/16 07:59 03/15/16 08:59 2 TAB Levothyroxine Sodium (Synthroid Tab) 25 mcg DAILYBB PO 03/14/16 06:00 04/13/16 05:59 03/15/16 05:24 25 MCG Loratadine (Claritin Tab) 10 mg HS PO 03/14/16 21:00 04/13/16 20:59 03/14/16 21:40 10 MG Multivitamins/ Minerals (Multivitamin W/ Minerals Tab) 1 tab DAILY PO 03/14/16 09:00 04/13/16 08:59 03/15/16 09:00 1 TAB Ranitidine HCl (zANTac TAB) 300 mg BID PO 03/14/16 09:00 04/13/16 08:59 03/15/16 09:02 300 MG Simvastatin (Zocor Tab) 20 mg HS PO 03/14/16 21:00 04/12/16 20:59 03/14/16 21:39 20 MG Artificial Tears (Artificial Tears) 1 drops UD PRN OP 03/13/16 23:00 04/12/16 22:59 Metoprolol Succinate (Toprol Xl Tab) 100 mg DAILY PO 03/14/16 09:00 04/13/16 08:59 03/15/16 09:04 100 MG Cyclobenzaprine HCl 5 mg 5 mg TID PRN PO 03/14/16 02:15 04/13/16 02:14 03/15/16 04:00 5 MG Lorazepam/Syringe (Ativan Inj/ Syringe) 1 ml @ 0.5 mls/min Q4 PRN IV 03/14/16 09:30 04/13/16 09:29 Albuterol (Ventolin Hfa Inhaler) 2 puffs Q4H PRN INH 03/14/16 18:15 04/13/16 18:14 Alendronate Sodium (Fosamax Tab) 70 mg Fr@0700 PO 03/21/16 07:00 04/20/16 06:59 Aspirin 81 mg 81 mg HS PO 03/14/16 21:00 04/13/16 20:59 03/14/16 21:48 81 MG Potassium Chloride/Dextrose/ Sod Cl (D5W And 1/2nss + 20meq KCl) 1,000 ml @ 100 mls/hr Q10H IV 03/14/16 21:00 03/15/16 20:59 03/15/16 06:10 100 MLS/HR Oxycodone HCl (Roxicodone Immediate Rel Tab) 1 TABLET FOR PAIN RATING... Q4H PRN PO 03/14/16 18:15 03/28/16 18:14 03/15/16 06:09 10 MG Morphine Sulfate (MoRPHine SULFATE INJ) 2 mg Q2HWA PRN IV 03/14/16 18:15 03/28/16 18:14 03/15/16 05:22 2 MG Acetaminophen (Tylenol Tab) 650 mg Q6H PRN PO 03/14/16 18:15 04/13/16 18:14 Magnesium Hydroxide (Milk Of Magnesia Susp) 30 ml Q6H PRN PO 03/14/16 18:15 04/13/16 18:14 Bisacodyl (Dulcolax Supp) 10 mg DAILY PRN ND 03/14/16 18:15 04/13/16 18:14 Sodium Biphosphate/ Sodium Phosphate (Fleet Enema) 132 ml DAILY PRN ND 03/14/16 18:15 04/13/16 18:14 Senna (Senokot Tab) 17.2 mg HS PO 03/14/16 21:00 04/13/16 20:59 03/14/16 21:47 17.2 MG Docusate Sodium (coLACE CAP) 100 mg BID PO 03/14/16 21:00 04/13/16 20:59 03/15/16 09:00 100 MG Diphenhydramine HCl (Benadryl Inj) 25 mg Q8H PRN IV 03/14/16 18:15 04/13/16 18:14 Al Hydrox/Mg Hydrox/Simethicone (Maalox Max Susp) 15 ml Q4H PRN PO 03/14/16 18:15 04/13/16 18:14 Ondansetron HCl (Zofran Inj) 4 mg Q6H PRN IV 03/14/16 18:15 04/13/16 18:14 Metoclopramide HCl (Reglan Inj) 10 mg Q6H PRN IV 03/14/16 18:15 04/13/16 18:14 Ferrous Gluconate (Ferrous Gluconate Tab) 324 mg TIDM PO 03/15/16 08:30 04/14/16 08:29 03/15/16 08:59 324 MG Pantoprazole Sodium 40 mg 40 mg QAM PO 03/15/16 09:00 04/14/16 08:59 03/15/16 09:02 40 MG Cefazolin Sodium/ Dextrose (Ancef Iv/D5 50ml) 55 ml @ 100 mls/hr Q8@0000,0800,1600 IV 03/15/16 00:00 03/15/16 16:32 03/15/16 07:26 100 MLS/HR Enoxaparin Sodium (Lovenox Inj) 40 mg DAILY@1800 SQ 03/15/16 18:00 04/14/16 17:59 Objective Vital Signs Date Time Temp Pulse Resp B/P Pulse Ox O2 Delivery O2 Flow Rate FiO2 03/15/16 09:06 99 132/76 03/15/16 07:40 36.9 92 18 145/73 93 Nasal Cannula 2.5 03/15/16 03:53 36.4 89 14 129/71 96 Room Air 03/14/16 23:45 Nasal Cannula 3.0 03/14/16 23:42 36.3 90 20 127/75 95 Nasal Cannula 3.0 03/14/16 22:33 95 Nasal Cannula 3.0 03/14/16 22:25 36.3 87 18 134/76 98 Nasal Cannula 3.0 03/14/16 21:15 36.8 87 18 135/79 94 Nasal Cannula 3.0 03/14/16 20:15 36.4 87 18 131/63 94 Nasal Cannula 3.0 03/14/16 19:45 36.5 103 18 114/65 95 Nasal Cannula 3.0 03/14/16 19:15 82 Nasal Cannula 2.0 03/14/16 19:05 80 18 114/48 97 Nasal Cannula 2 03/14/16 18:55 36.7 82 19 137/62 95 Nasal Cannula 2 03/14/16 18:45 82 20 125/39 94 Nasal Cannula 2 03/14/16 18:35 79 16 106/47 95 Nasal Cannula 2 03/14/16 18:25 78 19 107/55 96 Nasal Cannula 2 03/14/16 18:15 76 17 115/64 96 Nasal Cannula 2 03/14/16 18:09 36.1 76 18 125/66 99 Mask 10 Physical Exam General Appearance: no apparent distress, + pertinent finding (+resting tremor , chronic) Respiratory/Chest: lungs clear, normal breath sounds, no respiratory distress, no accessory muscle use Cardiovascular: regular rate, rhythm, no edema, no murmur Abdomen: normal bowel sounds, non tender, soft Extremities: normal inspection, no pedal edema, + pertinent finding (left hip dressed) Laboratory Results Last 24 Hours Test 03/15/16 06:50 Prothrombin Time 12.1 SECONDS Prothromb Time International Ratio 1.1 Sodium Level 135 mmol/L Potassium Level 3.5 mmol/L Chloride Level 102 mmol/L Carbon Dioxide Level 22 mmol/L Anion Gap 11.0 mmol/L Blood Urea Nitrogen 9 mg/dl Creatinine 0.72 mg/dl Est Creatinine Clear Calc Drug Dose 61.4 ml/min Estimated GFR () 94.9 Estimated GFR (Non- 81.9 BUN/Creatinine Ratio 12.6 Random Glucose 144 mg/dl Calcium Level 8.1 mg/dl Assessment and Plan This is a 75 year old female with PMH of Parkinson's, HTN, HLD, CKD stage 3, hypothyroidism, osteoporosis, GERD presents with left femur fracture secondary to fall Left Femoral Fracture secondary to Mechanical Fall 03/15 * s/p left JOANN * POD #1 * doing well, pain controlled * Lovenox as per ortho x 3 weeks * PT/OT * discharge planning 03/14 * patient with fall while playing with dog * uses cane/walker for ambulation due to underlying Parkinson's * pain is currently controlled * appreciate ortho input - plan is for surgery later today (03/14) * +anxiety due to surgery; Wellbutrin held this morning * Added low dose Ativan HTN * blood pressures labile due to pain * continue home medications and monitor (norvasc, metoprolol) Hypothyroidism * TSH wnl * continue home dose of synthroid CKD stage 3 * creat at baseline * continue LR DVT ppx * Lovenox x 3 weeks * then ASA 325mg x 3 weeks FULL CODE Patient's daughter requesting for updates from providers. Malena Zapata at
[2016-03-15] MEDS ORDERED: NURSING VERBAL MED ORDER ONE (15:00)
[2016-03-15] MEDS: ENOXAPARIN 40 MG/0.4 ML SYR SQ SCH (17:39)
[2016-03-15] MEDS: ASPIRIN 81 MG ECTAB PO SCH (20:35)
[2016-03-15] MEDS: LORATADINE 10 MG TAB PO SCH (20:35)
[2016-03-15] MEDS: SENNA 8.6 MG TAB PO SCH (20:36)
[2016-03-15] MEDS: SIMVASTATIN 20 MG TAB PO SCH (20:36)
[2016-03-16] MEDS: LEVOTHYROXINE 25 MCG TAB PO SCH (05:49)
[2016-03-16 06:51] LABS: INR 1.1 (0.9-1.1); PROTHROMBIN TIME (PATIENT) 12.1 SECONDS (9.0-12.0)
[2016-03-16 07:09] LABS: CALCIUM 8.7 mg/dl (8.5-10.1); CREATININE 0.71 mg/dl (0.60-1.20); POTASSIUM 3.4 mmol/L (3.5-5.1)
[2016-03-16 07:45] VITALS: BP 124/73; PULSE 86; TEMP 36.9; O2SAT 96
--- NOTE | 2016-03-16 08:18 | Orthopedic Progress Note ---
Orthopedic Progress Note Date of Service Mar 16, 2016. Subjective Post OP Day: 2 Reports: complaints (Spasms, hip feels good.) Objective calves soft nontender, N/V intact, incision C/D/I, A&O x3 Date Time Temp Pulse Resp B/P Pulse Ox O2 Delivery O2 Flow Rate FiO2 03/16/16 07:45 36.9 86 16 124/73 96 Nasal Cannula 2.0 03/16/16 00:15 Nasal Cannula 2.5 03/15/16 22:50 36.5 87 16 125/76 96 Nasal Cannula 2.0 03/15/16 15:27 36.4 91 18 109/72 97 Nasal Cannula 3.0 03/15/16 13:15 Nasal Cannula 2.5 03/15/16 12:18 36.9 88 16 112/65 96 Nasal Cannula 2.5 03/15/16 10:50 105 96 03/15/16 09:06 99 132/76 Laboratory Results 24 Hours: Last 24 Hours Test 03/16/16 06:15 Prothrombin Time 12.1 SECONDS Prothromb Time International Ratio 1.1 Sodium Level 137 mmol/L Potassium Level 3.4 mmol/L Chloride Level 99 mmol/L Carbon Dioxide Level 27 mmol/L Anion Gap 11.0 mmol/L Blood Urea Nitrogen 8 mg/dl Creatinine 0.71 mg/dl Est Creatinine Clear Calc Drug Dose 62.3 ml/min Estimated GFR () 96.6 Estimated GFR (Non- 83.3 BUN/Creatinine Ratio 11.0 Random Glucose 101 mg/dl Calcium Level 8.7 mg/dl Assessment & Plan Assessment: POD #2, s/p L hip davin-arthroplasty, doing as well as expected. Plan: WBAT with walker. PT/OT. Maintain total hip precautions. Continue pain control. Resume diet. [place] d/c 03/15/16. Changed dressing 03/16/16 am. Keep covered in hospital. DVT prophylaxis: Start Lovenox 03/15/16 pm and continue for 3 weeks, then switch to ASA 325 BID for another 3 weeks. Continue care per primary service. D/C planning.
[2016-03-16] MEDS: PANTOprazole SOD 40 MG TAB PO SCH (08:19)
[2016-03-16] MEDS: AMLODIPINE BESYLATE 5 MG TAB PO SCH (08:19)
[2016-03-16] MEDS: CARBIDOPA/LEVODOPA 25/100MG TAB PO SCH ×3 (08:19→18:18)
[2016-03-16] MEDS: CEROVITE ADV FORMULA TAB PO SCH (08:20)
[2016-03-16] MEDS: METOPROLOL SUCC 50MG EXT REL TAB PO SCH (08:20)
[2016-03-16] MEDS: FERROUS GLUCONATE 324 MG TAB PO SCH ×3 (08:20→18:14)
[2016-03-16] MEDS: RANITIDINE HCL 150 MG TAB PO SCH ×2 (08:21→20:35)
[2016-03-16] MEDS: CALCIUM 600MG + VIT D 400 IU TAB PO SCH ×2 (08:21→20:35)
[2016-03-16] MEDS: BuPROPion SR 150 MG TABCR PO SCH ×2 (08:21→20:35)
[2016-03-16] MEDS: DOCUSATE SODIUM 100 MG CAP PO SCH ×2 (08:22→20:35)
--- NOTE | 2016-03-16 10:19 | Progress Note ---
Subjective Date of Service: Mar 16, 2016. Subjective Pt evaluation today including: conversation w/ patient, physical exam, lab review, review of studies, review of inpatient medication list Saw/examined the patient in room 387 Doing well, pain controlled ambulating well Review of Systems Constitutional: No chills, No fever Respiratory: No cough, No shortness of breath Cardiac: No chest pain Musculoskeletal: + joint pain (controlled with medications) Medications Current Inpatient Medications Medications (Trade) Dose Ordered Sig/Shawna Route Start Time Stop Time Status Last Admin Dose Admin Calcium/Vitamin D (Caltrate Plus Tab) 1 tab BID PO 03/14/16 09:00 04/13/16 08:59 03/16/16 08:21 1 TAB Amlodipine Besylate (Norvasc Tab) 10 mg DAILY PO 03/14/16 09:00 04/13/16 08:59 03/16/16 08:19 10 MG Bupropion HCl (Wellbutrin-Sr Tab) 150 mg BID PO 03/14/16 09:00 04/13/16 08:59 03/16/16 08:21 150 MG Carbidopa/Levodopa (Sinemet 25/ 100MG Tab) 2 tab TIDM PO 03/14/16 08:00 04/13/16 07:59 03/16/16 08:19 2 TAB Levothyroxine Sodium (Synthroid Tab) 25 mcg DAILYBB PO 03/14/16 06:00 04/13/16 05:59 03/16/16 05:49 25 MCG Loratadine (Claritin Tab) 10 mg HS PO 03/14/16 21:00 04/13/16 20:59 03/15/16 20:35 10 MG Multivitamins/ Minerals (Multivitamin W/ Minerals Tab) 1 tab DAILY PO 03/14/16 09:00 04/13/16 08:59 03/16/16 08:20 1 TAB Ranitidine HCl (zANTac TAB) 300 mg BID PO 03/14/16 09:00 04/13/16 08:59 03/16/16 08:21 300 MG Simvastatin (Zocor Tab) 20 mg HS PO 03/14/16 21:00 04/12/16 20:59 03/15/16 20:36 20 MG Artificial Tears (Artificial Tears) 1 drops UD PRN OP 03/13/16 23:00 04/12/16 22:59 Metoprolol Succinate (Toprol Xl Tab) 100 mg DAILY PO 03/14/16 09:00 04/13/16 08:59 03/16/16 08:20 100 MG Cyclobenzaprine HCl 5 mg 5 mg TID PRN PO 03/14/16 02:15 04/13/16 02:14 03/15/16 20:36 5 MG Lorazepam/Syringe (Ativan Inj/ Syringe) 1 ml @ 0.5 mls/min Q4 PRN IV 03/14/16 09:30 04/13/16 09:29 Albuterol (Ventolin Hfa Inhaler) 2 puffs Q4H PRN INH 03/14/16 18:15 04/13/16 18:14 Alendronate Sodium (Fosamax Tab) 70 mg Fr@0700 PO 03/21/16 07:00 04/20/16 06:59 Aspirin (Ecotrin Tab) 81 mg HS PO 03/14/16 21:00 04/13/16 20:59 03/15/16 20:35 81 MG Oxycodone HCl (Roxicodone Immediate Rel Tab) 1 TABLET FOR PAIN RATING... Q4H PRN PO 03/14/16 18:15 03/28/16 18:14 03/15/16 15:03 10 MG Morphine Sulfate (MoRPHine SULFATE INJ) 2 mg Q2HWA PRN IV 03/14/16 18:15 03/28/16 18:14 03/15/16 05:22 2 MG Acetaminophen (Tylenol Tab) 650 mg Q6H PRN PO 03/14/16 18:15 04/13/16 18:14 Magnesium Hydroxide (Milk Of Magnesia Susp) 30 ml Q6H PRN PO 03/14/16 18:15 04/13/16 18:14 Bisacodyl (Dulcolax Supp) 10 mg DAILY PRN MA 03/14/16 18:15 04/13/16 18:14 Sodium Biphosphate/ Sodium Phosphate (Fleet Enema) 132 ml DAILY PRN MA 03/14/16 18:15 04/13/16 18:14 Senna (Senokot Tab) 17.2 mg HS PO 03/14/16 21:00 04/13/16 20:59 03/15/16 20:36 17.2 MG Docusate Sodium (coLACE CAP) 100 mg BID PO 03/14/16 21:00 04/13/16 20:59 03/16/16 08:22 100 MG Diphenhydramine HCl (Benadryl Inj) 25 mg Q8H PRN IV 03/14/16 18:15 04/13/16 18:14 Al Hydrox/Mg Hydrox/Simethicone (Maalox Max Susp) 15 ml Q4H PRN PO 03/14/16 18:15 04/13/16 18:14 Ondansetron HCl (Zofran Inj) 4 mg Q6H PRN IV 03/14/16 18:15 04/13/16 18:14 Metoclopramide HCl (Reglan Inj) 10 mg Q6H PRN IV 03/14/16 18:15 04/13/16 18:14 Ferrous Gluconate (Ferrous Gluconate Tab) 324 mg TIDM PO 03/15/16 08:30 04/14/16 08:29 03/16/16 08:20 324 MG Pantoprazole Sodium (Protonix Tab) 40 mg QAM PO 03/15/16 09:00 04/14/16 08:59 03/16/16 08:19 40 MG Enoxaparin Sodium (Lovenox Inj) 40 mg DAILY@1800 SQ 03/15/16 18:00 04/14/16 17:59 03/15/16 17:39 40 MG Objective Vital Signs Date Time Temp Pulse Resp B/P Pulse Ox O2 Delivery O2 Flow Rate FiO2 03/16/16 08:00 Nasal Cannula 2.0 03/16/16 07:45 36.9 86 16 124/73 96 Nasal Cannula 2.0 03/16/16 00:15 Nasal Cannula 2.5 03/15/16 22:50 36.5 87 16 125/76 96 Nasal Cannula 2.0 03/15/16 15:27 36.4 91 18 109/72 97 Nasal Cannula 3.0 03/15/16 13:15 Nasal Cannula 2.5 03/15/16 12:18 36.9 88 16 112/65 96 Nasal Cannula 2.5 03/15/16 10:50 105 96 Physical Exam General Appearance: no apparent distress, + pertinent finding (resting tremor, chronic) Respiratory/Chest: lungs clear, normal breath sounds, no respiratory distress, no accessory muscle use Cardiovascular: regular rate, rhythm, no edema, no murmur Abdomen: normal bowel sounds, non tender, soft Extremities: normal inspection, no pedal edema Neurologic/Psychiatric: no motor/sensory deficits, alert, normal mood/affect Laboratory Results Last 24 Hours Test 03/16/16 06:15 Prothrombin Time 12.1 SECONDS Prothromb Time International Ratio 1.1 Sodium Level 137 mmol/L Potassium Level 3.4 mmol/L Chloride Level 99 mmol/L Carbon Dioxide Level 27 mmol/L Anion Gap 11.0 mmol/L Blood Urea Nitrogen 8 mg/dl Creatinine 0.71 mg/dl Est Creatinine Clear Calc Drug Dose 62.3 ml/min Estimated GFR () 96.6 Estimated GFR (Non- 83.3 BUN/Creatinine Ratio 11.0 Random Glucose 101 mg/dl Calcium Level 8.7 mg/dl Assessment and Plan This is a 75 year old female with PMH of Parkinson's, HTN, HLD, CKD stage 3, hypothyroidism, osteoporosis, GERD presents with left femur fracture secondary to fall Left Femoral Fracture secondary to Mechanical Fall 03/16 * s/p left JOANN POD #2 * no problems/issues to note * PT/OT * plan for rehab 03/15 * s/p left JOANN * POD #1 * doing well, pain controlled * Lovenox as per ortho x 3 weeks * PT/OT * discharge planning 03/14 * patient with fall while playing with dog * uses cane/walker for ambulation due to underlying Parkinson's * pain is currently controlled * appreciate ortho input - plan is for surgery later today (03/14) * +anxiety due to surgery; Wellbutrin held this morning * Added low dose Ativan HTN * blood pressures labile due to pain * continue home medications and monitor (norvasc, metoprolol) Hypothyroidism * TSH wnl * continue home dose of synthroid CKD stage 3 * creat at baseline * continue LR DVT ppx * Lovenox x 3 weeks * then ASA 325mg x 3 weeks FULL CODE Patient's daughter requesting for updates from providers. Malena Zapata at
[2016-03-16] MEDS ORDERED: POTASSIUM CHLR 10 MEQ / WTR 10 MEQ in PREMIXED WATER 100 ML IV ONE (10:30)
[2016-03-16 16:20] VITALS: BP_SYST 93; BP_SYST 96; BP_DIAS 57; BP_DIAS 59; PULSE 80; TEMP 36.9; O2SAT 94
[2016-03-16] MEDS: ENOXAPARIN 40 MG/0.4 ML SYR SQ SCH (18:19)
[2016-03-16] MEDS: ASPIRIN 81 MG ECTAB PO SCH (20:35)
[2016-03-16] MEDS: SENNA 8.6 MG TAB PO SCH (20:35)
[2016-03-16] MEDS: SIMVASTATIN 20 MG TAB PO SCH (20:35)
[2016-03-16] MEDS: LORATADINE 10 MG TAB PO SCH (20:35)
[2016-03-16 23:15] VITALS: BP 130/68; PULSE 92; TEMP 36.7; O2SAT 90
[2016-03-17] MEDS: LEVOTHYROXINE 25 MCG TAB PO SCH (05:59)
[2016-03-17 06:57] LABS: BASO % 0.2 %; BASO ABS # 0.03 K/uL (0-0.2); COMPLETE YES; EOS % 1.7 %; HEMATOCRIT 31.7 % (37-47); IG% 0.3 %; LYMPH % 12.9 %; LYMPH ABS # 1.55 K/uL (1.2-3.4); MEAN CELL VOLUME 84.5 fL (80-100); MEAN CORPUSCULAR HGB CONC 33.1 g/dl (32-36); MEAN PLATELET VOLUME 10.3 fL (7.4-10.4); MONO % 10.8 %; NEUT % 74.1 %; PLATELET COUNT 147 K/uL (130-400); RED BLOOD COUNT 3.75 M/uL (4.2-5.4); WHITE BLOOD COUNT 12.05 K/uL (4.8-10.8)
[2016-03-17 07:05] LABS: PROTHROMBIN TIME (PATIENT) 10.4 SECONDS (9.0-12.0)
[2016-03-17 07:25] LABS: BUN/CREATININE RATIO 12.5 (10-20); CALCIUM 8.3 mg/dl (8.5-10.1); CREATININE 0.96 mg/dl (0.60-1.20); POTASSIUM 3.2 mmol/L (3.5-5.1)
[2016-03-17 08:15] VITALS: BP 131/67; PULSE 94; TEMP 37; O2SAT 93
[2016-03-17] MEDS: POTASSIUM CHLR 10 MEQ / WTR 10 MEQ in PREMIXED WATER 100 ML IV SCH ×4 (08:30→13:25)
[2016-03-17] MEDS: CARBIDOPA/LEVODOPA 25/100MG TAB PO SCH ×3 (08:31→17:52)
[2016-03-17] MEDS: FERROUS GLUCONATE 324 MG TAB PO SCH ×3 (08:31→17:52)
[2016-03-17] MEDS: DOCUSATE SODIUM 100 MG CAP PO SCH ×2 (08:31→20:47)
[2016-03-17] MEDS: CALCIUM 600MG + VIT D 400 IU TAB PO SCH ×2 (08:31→20:47)
[2016-03-17] MEDS: CEROVITE ADV FORMULA TAB PO SCH (08:31)
[2016-03-17] MEDS: RANITIDINE HCL 150 MG TAB PO SCH ×2 (08:32→20:48)
[2016-03-17] MEDS: METOPROLOL SUCC 50MG EXT REL TAB PO SCH (08:32)
[2016-03-17] MEDS: BuPROPion SR 150 MG TABCR PO SCH ×2 (08:32→20:47)
[2016-03-17] MEDS: AMLODIPINE BESYLATE 5 MG TAB PO SCH (08:32)
[2016-03-17] MEDS: PANTOprazole SOD 40 MG TAB PO SCH (08:32)
--- NOTE | 2016-03-17 08:38 | Anesthesiology Progress Note ---
Anesthesia Post Op Note Date & Time Mar 17, 2016 at 08:34 Vital Signs Pain Intensity: 0.0 Vital Signs Past 12 Hours Date Time Temp Pulse Resp B/P Pulse Ox O2 Delivery O2 Flow Rate FiO2 03/17/16 08:15 37.0 94 16 131/67 93 Room Air 03/17/16 07:23 Room Air 03/16/16 23:30 Room Air 03/16/16 23:15 36.7 92 18 130/68 90 Room Air Notes Mental Status: alert / awake / arousable, participated in evaluation Pt Amnestic to Procedure: Yes Nausea / Vomiting: adequately controlled Pain: adequately controlled Airway Patency, RR, SpO2: stable & adequate BP & HR: stable & adequate Hydration State: stable & adequate Neuraxial Anesthesia: sensory block resolved Anesthetic Complications: no major complications apparent pt states operative leg still slightly weak, evaluated leg, normal color and temp, no s/s of swelling redness, discreet touch intact throughout. Instructed pt to follow up with Dr. uH.
--- NOTE | 2016-03-17 10:21 | Progress Note ---
Subjective Date of Service: Mar 17, 2016. Subjective Pt evaluation today including: conversation w/ patient, physical exam, lab review, review of studies, review of inpatient medication list Saw/examined the patient in room 387 No complaints today seated in a chair pain controlled Review of Systems Constitutional: No chills, No fever Respiratory: No cough, No shortness of breath, No sputum Cardiac: No chest pain Abdomen: No diarrhea, No nausea, No pain, No vomiting Musculoskeletal: + joint pain (pain controlled) Medications Current Inpatient Medications Medications (Trade) Dose Ordered Sig/Shawna Route Start Time Stop Time Status Last Admin Dose Admin Calcium/Vitamin D (Caltrate Plus Tab) 1 tab BID PO 03/14/16 09:00 04/13/16 08:59 03/17/16 08:31 1 TAB Amlodipine Besylate (Norvasc Tab) 10 mg DAILY PO 03/14/16 09:00 04/13/16 08:59 03/17/16 08:32 10 MG Bupropion HCl (Wellbutrin-Sr Tab) 150 mg BID PO 03/14/16 09:00 04/13/16 08:59 03/17/16 08:32 150 MG Carbidopa/Levodopa (Sinemet 25/ 100MG Tab) 2 tab TIDM PO 03/14/16 08:00 04/13/16 07:59 03/17/16 08:31 2 TAB Levothyroxine Sodium (Synthroid Tab) 25 mcg DAILYBB PO 03/14/16 06:00 04/13/16 05:59 03/17/16 05:59 25 MCG Loratadine (Claritin Tab) 10 mg HS PO 03/14/16 21:00 04/13/16 20:59 03/16/16 20:35 10 MG Multivitamins/ Minerals (Multivitamin W/ Minerals Tab) 1 tab DAILY PO 03/14/16 09:00 04/13/16 08:59 03/17/16 08:31 1 TAB Ranitidine HCl (zANTac TAB) 300 mg BID PO 03/14/16 09:00 04/13/16 08:59 03/17/16 08:32 300 MG Simvastatin (Zocor Tab) 20 mg HS PO 03/14/16 21:00 04/12/16 20:59 03/16/16 20:35 20 MG Artificial Tears (Artificial Tears) 1 drops UD PRN OP 03/13/16 23:00 04/12/16 22:59 Metoprolol Succinate (Toprol Xl Tab) 100 mg DAILY PO 03/14/16 09:00 04/13/16 08:59 03/17/16 08:32 100 MG Cyclobenzaprine HCl 5 mg 5 mg TID PRN PO 03/14/16 02:15 04/13/16 02:14 03/15/16 20:36 5 MG Lorazepam/Syringe (Ativan Inj/ Syringe) 1 ml @ 0.5 mls/min Q4 PRN IV 03/14/16 09:30 04/13/16 09:29 Albuterol (Ventolin Hfa Inhaler) 2 puffs Q4H PRN INH 03/14/16 18:15 04/13/16 18:14 Alendronate Sodium (Fosamax Tab) 70 mg Fr@0700 PO 03/21/16 07:00 04/20/16 06:59 Aspirin (Ecotrin Tab) 81 mg HS PO 03/14/16 21:00 04/13/16 20:59 03/16/16 20:35 81 MG Oxycodone HCl (Roxicodone Immediate Rel Tab) 1 TABLET FOR PAIN RATING... Q4H PRN PO 03/14/16 18:15 03/28/16 18:14 03/15/16 15:03 10 MG Morphine Sulfate (MoRPHine SULFATE INJ) 2 mg Q2HWA PRN IV 03/14/16 18:15 03/28/16 18:14 03/15/16 05:22 2 MG Acetaminophen (Tylenol Tab) 650 mg Q6H PRN PO 03/14/16 18:15 04/13/16 18:14 Magnesium Hydroxide (Milk Of Magnesia Susp) 30 ml Q6H PRN PO 03/14/16 18:15 04/13/16 18:14 Bisacodyl (Dulcolax Supp) 10 mg DAILY PRN [place] 03/14/16 18:15 04/13/16 18:14 Sodium Biphosphate/ Sodium Phosphate (Fleet Enema) 132 ml DAILY PRN [place] 03/14/16 18:15 04/13/16 18:14 Senna (Senokot Tab) 17.2 mg HS PO 03/14/16 21:00 04/13/16 20:59 03/16/16 20:35 17.2 MG Docusate Sodium (coLACE CAP) 100 mg BID PO 03/14/16 21:00 04/13/16 20:59 03/17/16 08:31 100 MG Diphenhydramine HCl (Benadryl Inj) 25 mg Q8H PRN IV 03/14/16 18:15 04/13/16 18:14 Al Hydrox/Mg Hydrox/Simethicone (Maalox Max Susp) 15 ml Q4H PRN PO 03/14/16 18:15 04/13/16 18:14 Ondansetron HCl (Zofran Inj) 4 mg Q6H PRN IV 03/14/16 18:15 04/13/16 18:14 Metoclopramide HCl (Reglan Inj) 10 mg Q6H PRN IV 03/14/16 18:15 04/13/16 18:14 Ferrous Gluconate (Ferrous Gluconate Tab) 324 mg TIDM PO 03/15/16 08:30 04/14/16 08:29 03/17/16 08:31 324 MG Pantoprazole Sodium (Protonix Tab) 40 mg QAM PO 03/15/16 09:00 04/14/16 08:59 03/17/16 08:32 40 MG Enoxaparin Sodium 40 mg 40 mg DAILY@1800 SQ 03/15/16 18:00 04/14/16 17:59 03/16/16 18:19 40 MG Potassium Chloride/Prmx (Kcl 10 Meq / Wtr/Premixed Water) 100 ml @ 100 mls/hr TODAY@0800,0900,1000,1100 IV 03/17/16 08:00 03/17/16 11:59 03/17/16 08:30 100 MLS/HR Objective Vital Signs Date Time Temp Pulse Resp B/P Pulse Ox O2 Delivery O2 Flow Rate FiO2 03/17/16 08:15 37.0 94 16 131/67 93 Room Air 03/17/16 07:23 Room Air 03/16/16 23:30 Room Air 03/16/16 23:15 36.7 92 18 130/68 90 Room Air 03/16/16 16:20 96/59 03/16/16 16:20 36.9 80 16 93/57 94 Room Air 1/22/17 16:20 Room Air Physical Exam General Appearance: no apparent distress, + pertinent finding (+baseline resting tremor) Respiratory/Chest: lungs clear, normal breath sounds, no respiratory distress, no accessory muscle use Cardiovascular: regular rate, rhythm, no edema, no murmur Abdomen: normal bowel sounds, non tender, soft Extremities: normal range of motion, non-tender, normal inspection, no pedal edema Neurologic/Psychiatric: no motor/sensory deficits, alert, normal mood/affect Laboratory Results Last 24 Hours Test 03/17/16 06:45 White Blood Count 12.05 K/uL Red Blood Count 3.75 M/uL Hemoglobin 10.5 g/dL Hematocrit 31.7 % Mean Corpuscular Volume 84.5 fL Mean Corpuscular Hemoglobin 28.0 pg Mean Corpuscular Hemoglobin Concent 33.1 g/dl Platelet Count 147 K/uL Mean Platelet Volume 10.3 fL Neutrophils (%) (Auto) 74.1 % Lymphocytes (%) (Auto) 12.9 % Monocytes (%) (Auto) 10.8 % Eosinophils (%) (Auto) 1.7 % Basophils (%) (Auto) 0.2 % Neutrophils # (Auto) 8.93 K/uL Lymphocytes # (Auto) 1.55 K/uL Monocytes # (Auto) 1.30 K/uL Eosinophils # (Auto) 0.20 K/uL Basophils # (Auto) 0.03 K/uL RDW Standard Deviation 40.9 fL RDW Coefficient of Variation 13.3 % Immature Granulocyte % (Auto) 0.3 % Immature Granulocyte # (Auto) 0.04 K/uL Prothrombin Time 10.4 SECONDS Prothromb Time International Ratio 1.0 Sodium Level 138 mmol/L Potassium Level 3.2 mmol/L Chloride Level 102 mmol/L Carbon Dioxide Level 25 mmol/L Anion Gap 11.0 mmol/L Blood Urea Nitrogen 12 mg/dl Creatinine 0.96 mg/dl Est Creatinine Clear Calc Drug Dose 46.1 ml/min Estimated GFR () 67.1 Estimated GFR (Non- 57.9 BUN/Creatinine Ratio 12.5 Random Glucose 109 mg/dl Calcium Level 8.3 mg/dl Assessment and Plan This is a 75 year old female with PMH of Parkinson's, HTN, HLD, CKD stage 3, hypothyroidism, osteoporosis, GERD presents with left femur fracture secondary to fall Left Femoral Fracture secondary to Mechanical Fall s/p L JOANN 1/23 * Doing well, post-op day #3 * continue PT/OT * discharge planning for rehab 03/16 * s/p left JOANN POD #2 * no problems/issues to note * PT/OT * plan for rehab 03/15 * s/p left JOANN * POD #1 * doing well, pain controlled * Lovenox as per ortho x 3 weeks * PT/OT * discharge planning 03/14 * patient with fall while playing with dog * uses cane/walker for ambulation due to underlying Parkinson's * pain is currently controlled * appreciate ortho input - plan is for surgery later today (03/14) * +anxiety due to surgery; Wellbutrin held this morning * Added low dose Ativan HTN * blood pressures labile due to pain * continue home medications and monitor (norvasc, metoprolol) Hypothyroidism * TSH wnl * continue home dose of synthroid CKD stage 3 * creat at baseline * continue LR DVT ppx * Lovenox x 3 weeks * then ASA 325mg x 3 weeks FULL CODE Patient's daughter requesting for updates from providers. Malena Zapata at
[2016-03-17] MEDS: OXYCODONE HCL IR 5 MG TAB (IMMEDIATE RELEASE) PO PRN (10:34)
--- NOTE | 2016-03-17 13:06 | Orthopedic Progress Note ---
Orthopedic Progress Note Date of Service Mar 17, 2016. 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 Objective calves soft nontender, N/V intact, hip located, capillary refill less than 2 sec., dressing C/D/I, incision C/D/I, A&O x3, toes mobile, CMS intact Date Time Temp Pulse Resp B/P Pulse Ox O2 Delivery O2 Flow Rate FiO2 03/17/16 08:15 37.0 94 16 131/67 93 Room Air 03/17/16 07:23 Room Air 03/16/16 23:30 Room Air 03/16/16 23:15 36.7 92 18 130/68 90 Room Air 03/16/16 16:20 96/59 03/16/16 16:20 36.9 80 16 93/57 94 Room Air 03/16/16 16:20 Room Air Laboratory Results 24 Hours: Test 03/17/16 06:45 White Blood Count 12.05 K/uL Red Blood Count 3.75 M/uL Hemoglobin 10.5 g/dL Hematocrit 31.7 % Mean Corpuscular Volume 84.5 fL Mean Corpuscular Hemoglobin 28.0 pg Mean Corpuscular Hemoglobin Concent 33.1 g/dl Platelet Count 147 K/uL Mean Platelet Volume 10.3 fL Neutrophils (%) (Auto) 74.1 % Lymphocytes (%) (Auto) 12.9 % Monocytes (%) (Auto) 10.8 % Eosinophils (%) (Auto) 1.7 % Basophils (%) (Auto) 0.2 % Neutrophils # (Auto) 8.93 K/uL Lymphocytes # (Auto) 1.55 K/uL Monocytes # (Auto) 1.30 K/uL Eosinophils # (Auto) 0.20 K/uL Basophils # (Auto) 0.03 K/uL Prothromb Time International Ratio 1.0 Prothrombin Time 10.4 SECONDS Assessment & Plan Assessment: POD #3, s/p L hip davin-arthroplasty Plan: WBAT with walker. PT/OT. Maintain total hip precautions. Continue pain control. Resume diet. Changed dressing 03/17/16 am. Keep covered in hospital. DVT prophylaxis: Start Lovenox 03/15/16 pm and continue for 3 weeks, then switch to ASA 325 BID for another 3 weeks. Continue care per primary service. D/C planning. I, Dr. Hu, saw and examined the patient and discussed the management with my PA. I reviewed my PAs note and agree with the documented findings and the plan of care I developed.
[2016-03-17 15:11] VITALS: BP 99/66; PULSE 80; TEMP 36.8; O2SAT 95
[2016-03-17 15:50] VITALS: O2SAT 95
[2016-03-17] MEDS: ENOXAPARIN 40 MG/0.4 ML SYR SQ SCH (17:53)
[2016-03-17] MEDS: SENNA 8.6 MG TAB PO SCH (20:46)
[2016-03-17] MEDS: LORATADINE 10 MG TAB PO SCH (20:47)
[2016-03-17] MEDS: ASPIRIN 81 MG ECTAB PO SCH (20:47)
[2016-03-17] MEDS: SIMVASTATIN 20 MG TAB PO SCH (20:49)
[2016-03-17 23:27] VITALS: BP 125/75; PULSE 78; TEMP 36.3; O2SAT 95
[2016-03-18] MEDS: OXYCODONE HCL IR 5 MG TAB (IMMEDIATE RELEASE) PO PRN (00:03)
[2016-03-18] MEDS: LEVOTHYROXINE 25 MCG TAB PO SCH (05:13)
[2016-03-18 06:55] LABS: HEMATOCRIT 31.5 % (37-47); MEAN CELL VOLUME 84.5 fL (80-100); MEAN CORPUSCULAR HEMOGLOBIN 27.6 pg (25-34); MEAN CORPUSCULAR HGB CONC 32.7 g/dl (32-36); PLATELET COUNT 181 K/uL (130-400); RED BLOOD COUNT 3.73 M/uL (4.2-5.4); WHITE BLOOD COUNT 10.21 K/uL (4.8-10.8)
[2016-03-18 07:28] LABS: BUN/CREATININE RATIO 20.9 (10-20); CALCIUM 8.5 mg/dl (8.5-10.1); CREATININE 0.82 mg/dl (0.60-1.20); POTASSIUM 4.1 mmol/L (3.5-5.1)
[2016-03-18 08:05] VITALS: BP 129/68; PULSE 96; TEMP 36.7; O2SAT 94
[2016-03-18] MEDS: FERROUS GLUCONATE 324 MG TAB PO SCH ×3 (08:30→18:12)
[2016-03-18] MEDS: BuPROPion SR 150 MG TABCR PO SCH ×2 (08:31→20:48)
[2016-03-18] MEDS: CARBIDOPA/LEVODOPA 25/100MG TAB PO SCH ×3 (08:32→18:12)
[2016-03-18] MEDS: PANTOprazole SOD 40 MG TAB PO SCH (08:32)
[2016-03-18] MEDS: DOCUSATE SODIUM 100 MG CAP PO SCH ×2 (08:32→20:48)
[2016-03-18] MEDS: AMLODIPINE BESYLATE 5 MG TAB PO SCH (08:33)
[2016-03-18] MEDS: CYCLOBENZAPRINE HCL 5 MG TAB PO PRN (08:33)
[2016-03-18] MEDS: CALCIUM 600MG + VIT D 400 IU TAB PO SCH ×2 (08:34→20:49)
[2016-03-18] MEDS: RANITIDINE HCL 150 MG TAB PO SCH ×2 (08:34→20:49)
[2016-03-18] MEDS: CEROVITE ADV FORMULA TAB PO SCH (08:34)
[2016-03-18] MEDS: METOPROLOL SUCC 50MG EXT REL TAB PO SCH (08:34)
--- NOTE | 2016-03-18 09:09 | Progress Note ---
Orthopedic SOAP Note Subjective Date of Service: Mar 18, 2016. 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 PT/OT. Maintain total hip precautions. Continue pain control. Resume diet. Daily dressing changes. Keep covered in hospital. DVT prophylaxis: Start Lovenox 03/15/16 pm and continue for 3 weeks, then switch to ASA 325 BID for another 3 weeks. Continue care per primary service. H&H stable Orthopedically stable. D/C planning. Referrals made to additional facilities for transfer. Awaiting accordingly. Performed discharge instruction portion of electronic discharge regarding total hip precautions etc. I, Dr. Hu, saw and examined the patient and discussed the management with my PA. I reviewed my PAs note and agree with the documented findings and the plan of care I developed.
--- NOTE | 2016-03-18 09:15 | Discharge Instructions ---
Discharge Instructions Admission Reason for Admission: Femoral Fx Discharge Discharge Diagnosis / Problem: s/p Left hip hemiarthroplasty Discharge Goals Goal(s): Decrease discomfort, Improve function, Increase independence Activity Recommendations Activity Level: Up Ad [place], Self Positioning, OOB In Chair, Assistance Required , Bedside Commode Therapies: Physical Therapy, Weight Bearing Status (as tolerated with walker and assist), Occupational Therapy Weightbearing Status: Left weightbearing (as tolerated) Exercise/Sports Limitations: none Shower/Bathe: keep incision dry . Additional Information Patient informed of condition: Yes Advance Directives: Yes DNR: No Level of Care: Skilled Communicable Disease: No Prognosis: Stable [place] Catheter: No Current Hospital Diet Patient's current hospital diet: AHA Diet (Heart Healthy) Discharge Diet Recommended Diet: AHA Diet (Heart Healthy) Procedures Procedures Performed: Left Hip Hemiarthoplasty - cemented Pending Studies Studies pending at discharge: no Physician Orders On Transfer Dressing Changes: DAILY DRESSING CHANGES Keep incision covered daily with ABD and tape POLST Discussion: without POLST completion Medical Emergencies . Who to Call and When: Medical Emergencies: If at any time you feel your situation is an emergency, please call 911 immediately. . Non-Emergent Contact Non-Emergency issues call your: Primary Care Provider . . "Provider Documentation" section prepared by Tray Najera. Core Measure Problem Core Measures: VTE VTE Core Measures Date of VTE Diagnosis: Mar 18, 2016 Time of VTE Diagnosis: 09:15 Reason no anticoag overlap I/P: Treatment provided - N/A Reason no anticoag overlap @DC: Treatment provided - N/A PA Drug Monitoring Program Search Results: no issues identified
[2016-03-18 16:23] VITALS: BP 123/73; PULSE 89; TEMP 36.3; O2SAT 92
[2016-03-18] MEDS: ENOXAPARIN 40 MG/0.4 ML SYR SQ SCH (18:12)
--- NOTE | 2016-03-18 18:51 | Progress Note ---
Internal Med Progress Note Date of Service: Mar 18, 2016. Provider Documentation: SUBJECTIVE: Patient is sitting comfortably in the bed in no apparent distress. Pain has been tolerable with current regimen. No other new change or complaint. OBJECTIVE: Vital Signs-as noted below Examination: General Appearance: no apparent distress, Baseline resting tremor HEENT: Normocephalic, Eyes, Ears, Nose & THroat are normal looking. Neck: Supple, Midline trachea, No JVD. Respiratory/Chest: lungs clear, normal breath sounds, no respiratory distress, no accessory muscle use Cardiovascular: regular rate, rhythm, no edema, no murmur Abdomen: normal bowel sounds, non tender, soft Extremities: normal range of motion, non-tender, normal inspection, no pedal edema Neurologic/Psychiatric: no motor/sensory deficits, alert, normal mood/affect Lab data as noted below. ASSESSMENT & PLAN: Left Femoral Fracture secondary to Mechanical Fall s/p L JOANN: POD # 4. Clinically & hemodynamically doing well. patient with fall while playing with dog. Uses cane/walker for ambulation due to underlying Parkinson's -Tolerating PT/OT well so far -Pain medications as needed & pain is tolerable. -DVT Prophylaxis as per Orthopedics Hypertension: BP is stable now. -Continue home medications and monitor (Norvasc, Metoprolol) CKD Stage III: Creat at baseline Hypothyroidism: Normal TSH. -Continue home dose of Synthroid DVT Prophylaxis: Lovenox x 3 weeks & then ASA 325mg x 3 weeks FULL CODE Disposition: Likely discharge on 03/20/2016. Patient's daughter requesting for updates from providers. Malena Zapata at Vital Signs: Date Time Temp Pulse Resp B/P Pulse Ox O2 Delivery O2 Flow Rate FiO2 03/18/16 16:23 36.3 89 16 123/73 92 Room Air 03/18/16 08:05 36.7 96 16 129/68 94 Room Air 03/18/16 08:00 Room Air 03/17/16 23:55 Room Air 03/17/16 23:27 36.3 78 18 125/75 95 Room Air Lab Results: Results Past 24 Hours Test 03/18/16 05:57 Range/Units White Blood Count 10.21 4.8-10.8 K/uL Red Blood Count 3.73 4.2-5.4 M/uL Hemoglobin 10.3 12.0-16.0 g/dL Hematocrit 31.5 37-47 % Mean Corpuscular Volume 84.5 80-100 fL Mean Corpuscular Hemoglobin 27.6 25-34 pg Mean Corpuscular Hemoglobin Concent 32.7 32-36 g/dl RDW Standard Deviation 40.6 36.4-46.3 fL RDW Coefficient of Variation 13.4 11.5-14.5 % Platelet Count 181 130-400 K/uL Mean Platelet Volume 10.0 7.4-10.4 fL Sodium Level 137 136-145 mmol/L Potassium Level 4.1 3.5-5.1 mmol/L Chloride Level 102 98-107 mmol/L Carbon Dioxide Level 24 21-32 mmol/L Anion Gap 11.0 3-11 mmol/L Blood Urea Nitrogen 17 7-18 mg/dl Creatinine 0.82 0.60-1.20 mg/dl Est Creatinine Clear Calc Drug Dose 53.9 ml/min Estimated GFR () 81.1 Estimated GFR (Non- 70.0 BUN/Creatinine Ratio 20.9 10-20 Random Glucose 102 70-99 mg/dl Calcium Level 8.5 8.5-10.1 mg/dl
[2016-03-18] MEDS: LORATADINE 10 MG TAB PO SCH (20:48)
[2016-03-18] MEDS: ASPIRIN 81 MG ECTAB PO SCH (20:48)
[2016-03-18] MEDS: SIMVASTATIN 20 MG TAB PO SCH (20:49)
[2016-03-18] MEDS: SENNA 8.6 MG TAB PO SCH (20:49)
[2016-03-18 23:27] VITALS: BP 121/74; PULSE 87; TEMP 36.6; O2SAT 94
[2016-03-19] MEDS: CYCLOBENZAPRINE HCL 5 MG TAB PO PRN ×2 (03:10→09:00)
[2016-03-19] MEDS: OXYCODONE HCL IR 5 MG TAB (IMMEDIATE RELEASE) PO PRN (04:03)
[2016-03-19] MEDS: LEVOTHYROXINE 25 MCG TAB PO SCH (06:02)
[2016-03-19 07:35] VITALS: BP 117/68; PULSE 86; TEMP 37; O2SAT 92
[2016-03-19] MEDS: DOCUSATE SODIUM 100 MG CAP PO SCH (09:00)
[2016-03-19] MEDS: CEROVITE ADV FORMULA TAB PO SCH (09:00)
[2016-03-19] MEDS: RANITIDINE HCL 150 MG TAB PO SCH (09:01)
[2016-03-19] MEDS: CALCIUM 600MG + VIT D 400 IU TAB PO SCH (09:01)
[2016-03-19] MEDS: PANTOprazole SOD 40 MG TAB PO SCH (09:01)
[2016-03-19] MEDS: METOPROLOL SUCC 50MG EXT REL TAB PO SCH (09:01)
[2016-03-19] MEDS: AMLODIPINE BESYLATE 5 MG TAB PO SCH (09:01)
[2016-03-19] MEDS: BuPROPion SR 150 MG TABCR PO SCH (09:01)
--- NOTE | 2016-03-19 09:01 | Orthopedic Progress Note ---
Orthopedic Progress Note Date of Service Mar 19, 2016. 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 PT/OT. Maintain total hip precautions. Continue pain control. Resume diet. Daily dressing changes. Keep covered in hospital. DVT prophylaxis: Start Lovenox 03/15/16 pm and continue for 3 weeks, then switch to ASA 325 BID for another 3 weeks. Continue care per primary service. H&H stable Orthopedically stable. D/C planning. Referrals made to additional facilities for transfer. Awaiting accordingly. Performed discharge instruction portion of electronic discharge regarding total hip precautions etc.
[2016-03-19] MEDS: FERROUS GLUCONATE 324 MG TAB PO SCH ×2 (09:02→12:02)
[2016-03-19] MEDS: CARBIDOPA/LEVODOPA 25/100MG TAB PO SCH ×2 (09:02→12:03)
--- NOTE | 2016-03-19 11:08 | Progress Note ---
Internal Med Progress Note Date of Service: Mar 19, 2016. Provider Documentation: SUBJECTIVE: Patient is sitting comfortably in the bed in no apparent distress. Pain has been tolerable with current regimen. Had a BM last night. No other new change or complaint. OBJECTIVE: Vital Signs-as noted below Examination: General Appearance: no apparent distress, Baseline resting tremor HEENT: Normocephalic, Eyes, Ears, Nose & THroat are normal looking. Neck: Supple, Midline trachea, No JVD. Respiratory/Chest: lungs clear, normal breath sounds, no respiratory distress, no accessory muscle use Cardiovascular: regular rate, rhythm, no edema, no murmur Abdomen: normal bowel sounds, non tender, soft Extremities: normal range of motion, non-tender, normal inspection, no pedal edema Neurologic/Psychiatric: no motor/sensory deficits, alert, normal mood/affect Lab data as noted below. ASSESSMENT & PLAN: Left Femoral Fracture secondary to Mechanical Fall s/p L JOANN: POD # 5. Clinically & hemodynamically doing well. patient with fall while playing with dog. Uses cane/walker for ambulation due to underlying Parkinson's -Tolerating PT/OT well so far -Pain medications as needed & pain is tolerable. -DVT Prophylaxis as per Orthopedics Hypertension: BP is stable now. -Continue home medications and monitor (Norvasc, Metoprolol) CKD Stage III: Creat at baseline Hypothyroidism: Normal TSH. -Continue home dose of Synthroid DVT Prophylaxis: Lovenox x 3 weeks & then ASA 325mg x 3 weeks FULL CODE Disposition: Will be discharged to Rehab facility later today in the afternoon. Left message for the daughter. Follow up with Ortho as per their recommendations. Follow up with the Physician at the facility. Patient's daughter requesting for updates from providers. Malena Zapata at Vital Signs: Date Time Temp Pulse Resp B/P Pulse Ox O2 Delivery O2 Flow Rate FiO2 03/19/16 08:00 Room Air 03/19/16 07:35 37.0 86 18 117/68 92 Room Air 03/19/16 00:10 Room Air 03/18/16 23:27 36.6 87 18 121/74 94 Room Air 03/18/16 20:30 Room Air 03/18/16 16:23 36.3 89 16 123/73 92 Room Air
[2016-03-19] MEDS ORDERED: FRRG PO (11:12)
[2016-03-19] MEDS ORDERED: RXC5 PO (11:12)
[2016-03-19] MEDS ORDERED: CLC100 PO (11:12)
[2016-03-19] MEDS ORDERED: LVNIS40 SQ (11:12)
--- NOTE | 2016-03-19 11:17 | Discharge Instructions ---
Discharge Instructions Admission Reason for Admission: Femoral Fx Discharge Discharge Diagnosis / Problem: S/P Left Hip Fracture (Repair done) Discharge Goals Goal(s): Decrease discomfort, Improve function, Increase independence, Improve disease control, Learn about illness, Diagnostic testing, Therapeutic intervention Activity Recommendations Activity Limitations: per Instructions/Follow-up section Lifting Limitations: gradually increase as tolerated Exercise/Sports Limitations: gradually increase as tolerated (As per the advice of PT/OT) Shower/Bathe: tomorrow (With assistance) . Instructions / Follow-Up Instructions / Follow-Up Follow up with Orthopedics as per their advice Use pain medications as need arises. Monitor for constipation and notify the nursing staff at the facility Current Hospital Diet Patient's current hospital diet: AHA Diet (Heart Healthy) Discharge Diet Recommended Diet: AHA Diet (Heart Healthy) Procedures Procedures Performed: Left Hip Hemiarthoplasty - cemented Pending Studies Studies pending at discharge: no Medical Emergencies . Who to Call and When: Medical Emergencies: If at any time you feel your situation is an emergency, please call 911 immediately. . Non-Emergent Contact Non-Emergency issues call your: Primary Care Provider, Specialist (Orthopedics) . . "Provider Documentation" section prepared by Andrew Murray. VTE Core Measure Inpt VTE Proph given/why not?: Enoxaparin (Lovenox)SQ (Lovenox for 3 weeks followed by Aspirin for 3 weeks.)
--- NOTE | 2016-03-19 11:19 | Discharge Summary ---
Discharge Summary Admission Date: Mar 13, 2016 at 22:30 Discharge Date: Mar 19, 2016 Discharge Disposition: Rehab Principal Diagnosis: Left Hip Fracture (Surgical Repair Done) Secondary Diagnoses/Problems: Hypertension Parkinson's Disease Hypothyroidism CKD Stage III Procedures: Left Hip Arthroplasty Vaccinations: NONE Consultations: Orthopedics Pending Studies/Follow-Up: Follow up with Orthopedics as per their advice. Medication Reconciliation New Medications: Docusate Sodium (Docusate Sodium) 100 Mg Cap 100 MG PO BID, #30 CAP Enoxaparin (Enoxaparin Sodium) 40 Mg/0.4 Ml Inj 40 MG SQ DAILY@1800, #14 EA Ferrous Gluconate (Ferrous Gluconate) 324 Mg Tab 324 MG PO BIDM, #60 TAB Oxycodone HCl (Oxycodone HCl) 5 Mg Tab 5 MG PO Q4H PRN for Moderate to Severe Pain, #30 TAB Continued Medications: Albuterol (Ventolin Hfa) 60 Puffs/5400 Mcg Aers 2 PUFFS INH Q4H PRN for Wheezing Alendronate Sodium (Fosamax) 70 Mg Tab 70 MG PO WK, TAB TAKE THIS MEDICATION EVERY THURSDAY Amlodipine (Norvasc) 10 Mg Tab 10 MG PO DAILY, TAB Aspirin (Aspirin Ec) 81 Mg Tab 81 MG PO HS Bupropion Hcl (Bupropion Hcl Er) 150 Mg Tab 150 MG PO BID TAKE AT LEAST 8 HOURS APART Carbidopa/Levodopa (Sinemet 25MG/100MG) Tab 2 TABS PO TIDM, TAB Cbargmmd-Bhcrjoatkfsu-Pizovxna (Artificial Tears) 1 Bhupinder Bhupinder 1 DROP OP UD PRN for Dry Eye(s) Levothyroxine Sodium (Levothyroxine Sodium) 25 Mcg Tab 25 MCG PO DAILY, TAB Loratadine (Claritin) 10 Mg Tab 10 MG PO HS, TAB Metoprolol Succ (Toprol Xl) (Toprol-Xl ) 100 Mg Tabcr 100 MG PO DAILY, TAB Multiple Vitamins W/ Minerals (Womens One Daily) 1 Tab Tab 1 TAB PO DAILY Ranitidine Hcl (Zantac) 300 Mg Tab 300 MG PO BID, TAB Simvastatin (Zocor) 20 Mg Tab 20 MG PO HS, TAB Discontinued Medications: Docusate Sodium (Colace) 100 Mg Cap 100 MG PO HS, CAP Admission Information HPI (per Admitting provider): Medical history significant for Parkinson disease, hypertension, osteoporosis, reflux, hypothyroidism, and mood disorder. Patient was playing with a family dog today when she subsequently fell down landing on her left side, unable to get up with excruciating left-sided hip pain. No chest pain, no shortness of breath, no syncope. Brought to the Emergency Room. MEDICAL HISTORY: As above. SURGERIES: Hysterectomy, tonsillectomy, cataract surgery, tear duct opening. Physical Exam (per Admitting): VITAL SIGNS: Blood pressure was noted to be 100/70 pulse rate 88, RR 18, temperature 36.7, sats 98 on room air. GENERAL: Noted to be slightly uncomfortable, no respiratory distress. SKIN: Normal color. HEENT: Joes palpebral conjunctivae. Dry mucosa. NECK: No JVD. Supple. CHEST: Clear to auscultation. HEART: Regular rate and rhythm. ABDOMEN: Soft. EXTREMITIES: Tenderness on the left hip. NEUROLOGIC: rest tremors in the hands. Hospital Course Left Femoral Fracture secondary to Mechanical Fall s/p L JOANN: POD # 5. Clinically & hemodynamically doing well. patient with fall while playing with dog. Uses cane/walker for ambulation due to underlying Parkinson's -Tolerating PT/OT well so far -Pain medications as needed & pain is tolerable. -DVT Prophylaxis as per Orthopedics Hypertension: BP is stable now. -Continue home medications and monitor (Norvasc, Metoprolol) CKD Stage III: Creat at baseline Hypothyroidism: Normal TSH. -Continue home dose of Synthroid DVT Prophylaxis: Lovenox x 3 weeks & then ASA 325mg x 3 weeks FULL CODE Disposition: Will be discharged to Rehab facility later today in the afternoon. Left message for the daughter. Follow up with Ortho as per their recommendations. Follow up with the Physician at the facility. Patient's daughter requesting for updates from providers. Malena Zapata at Total time spent on discharge = 45 minutes. This includes examination of the patient, discharge planning, medication reconciliation, and communication with other providers. Discharge Instructions Activity Recommendations Activity Limitations: per Instructions/Follow-up section Lifting Limitations: gradually increase as tolerated Exercise/Sports Limitations: gradually increase as tolerated (As per the advice of PT/OT) Shower/Bathe: tomorrow (With assistance) . Instructions / Follow-Up Instructions / Follow-Up Follow up with Orthopedics as per their advice Use pain medications as need arises. Monitor for constipation and notify the nursing staff at the facility Current Hospital Diet Patient's current hospital diet: AHA Diet (Heart Healthy) Discharge Diet Recommended Diet: AHA Diet (Heart Healthy)
[2016-03-19 11:50] VITALS: BP 117/68; PULSE 86; TEMP 37; O2SAT 92
--- NOTE | 2016-03-20 08:44 | DISCHARGE SUMMARY ---
ADMISSION DIAGNOSIS: Left hip fracture. DISCHARGE DIAGNOSIS: Status post left hip hemiarthroplasty. PROCEDURE PERFORMED: Left hip cemented hemiarthroplasty completed by Dr. Hu from [facility] on 03/14/2016 at the [facility]. PERTINENT DISCHARGE MEDICATIONS: Include Lovenox 40 mg injection daily x3 weeks postoperatively for DVT prophylaxis followed by an additional 3 weeks of aspirin 325 mg twice daily. HOSPITAL COURSE: Marion is a 75-year-old female ambulator with a history of Parkinson's disease who sustained a fall injuring her left lower extremity. The patient was admitted under medicine. X-rays were obtained and surgery was performed on Thursday03/14/2016. The patient tolerated the procedure very well and spent the next 5 days in the [facility] medical surgical unit being followed by orthopedics and again by her attending medical doctor. The patient participated in physical therapy. On her most recent physical therapy evaluation on 03/19/2016 she was able to ambulate 12 feet with a rolling walker and minimal to moderate assist x1. Overall, patient does have some difficulty secondary to her Parkinson's which makes it difficult for her at baseline for her to ambulate. Nonetheless, the patient maintained stable lab values and vital signs. She was able to be transferred to [facility] on 03/19/2016. Vital signs upon discharge revealed temperature of 36.0, pulse of 86, respiratory rate of 18, blood pressure of 117/68 and pulse ox of 92% on room air. Lab values on 03/18/2016 reveal a white count of 10, hemoglobin of 10, hematocrit of 31 and platelet count of 181. Chemistry on 03/18/2016 reveals sodium of 137, potassium of 4.1, chloride of 102, carbon dioxide of 24, BUN of 17 and creatinine at 0.82 and glucose 102. DISCHARGE INSTRUCTIONS: 1. Transfer to [facility] on 03/19/2016. 2. Weightbear as tolerated left lower extremity with a walker and assist. 3. Daily dressing changes. 4. DVT prophylaxis with 3 weeks of Lovenox 40 mg daily and additional 3 weeks of aspirin 325 mg twice daily. 5. Pain medication prescribed are Percocet for pain control. Overall, patient's discomfort is very little at this time and is well controlled with oral medications. 6. Resume previous diet. 7. Ice left hip. 8. Physical therapy and occupational therapy ordered. 9. The patient will require followup with Dr. Desmond Hu at [facility] 2 weeks after surgery for staple removal. The patient was given information on where to call to make this appointment. 10. The patient will need to follow strict total hip precautions, please see medicine's discharge summary as well from other medical perspective. 11. No other questions or concerns. If so notify [facility] at [phone]. FRANSICOD
[2016-03-21] MEDS ORDERED: ALENDRONATE SODIUM 70 MG TAB PO SCH (07:00)
== END 2016-03-19 15:02 | DRG 470 ==
LOC: ENRESERVTM → ENRESERVDT → C.EDC 20:07 → C.MSN 22:30
PROVIDERS: ADMIT Family Medicine; ATTEND Emergency Medicine
PROC: 0SRB0J9 Replacement of Left Hip Joint with Synthetic Substitute, Cemented, Open Approach (ICD-10-PCS; principal; 2016-03-14 15:30)
DX: S72.002A Fracture of unspecified part of neck of left femur, initial encounter for closed fracture (principal); M80.852A Other osteoporosis with current pathological fracture, left femur, initial encounter for fracture; I12.9 Hypertensive chronic kidney disease with stage 1 through stage 4 chronic kidney disease, or unspecified chronic kidney disease; N18.3 Chronic kidney disease, stage 3 (moderate); G20 Parkinson's disease; E03.9 Hypothyroidism, unspecified; E78.5 Hyperlipidemia, unspecified; M81.0 Age-related osteoporosis without current pathological fracture; K21.9 Gastro-esophageal reflux disease without esophagitis; W19.XXXA Unspecified fall, initial encounter

== ENCOUNTER → 2016-05-09 | Outpatient (CLI) | payer OTHER ==
[~2016-05-09] MED LIST: ALEN70TA4 PO; AMLO-114 PO; ASPI81TA28 PO; BUPR-267 PO; CARB25TA12 PO; CLC100 PO; CLR10 PO; FRRG PO; GLYCDRO6 OP; LEVO25TA5 PO; LVNIS40 SQ; METO1TAB69 PO; MULT-240 PO; PRVHFAIN INH; RANI300T2 PO; RXC5 PO; SIMV20TA2 PO
== END | disposition home or self-care (01) ==
LOC: C.RDSM 12:47
PROVIDERS: ATTEND Orthopaedic Surgery Sports Medicine
DX: Z09 Encounter for follow-up examination after completed treatment for conditions other than malignant neoplasm (principal)

== ENCOUNTER 2017-03-04 01:46 | Emergency (ER) | payer OTHER ==
[~2017-03-04] VITALS: Ht 152.4 cm; Wt 68.9 kg
[~2017-03-04 01:46] MED LIST changes: +METO100T44 PO; -METO1TAB69 PO
[2017-03-04 01:50] VITALS: TEMP 36.6; Ht 152.4 cm; Wt 68.9 kg
[2017-03-04] MEDS ORDERED: FENTANYL CITRATE INJ 50 MCG/1 ML 2 ML VIAL IV STA ×2 (02:26→06:53)
[2017-03-04] MEDS ORDERED: AMLO-110 PO (04:30)
[2017-03-04] MEDS ORDERED: QUET1TAB30 PO ×2 (04:30)
[2017-03-04] MEDS ORDERED: SIMV10TA2 PO (04:30)
[2017-03-04] MEDS ORDERED: CLON0.5T3 PO (04:32)
[2017-03-04] MEDS ORDERED: CALC-574 PO (04:32)
[2017-03-04] MEDS ORDERED: PRMVC PV (04:34)
[2017-03-04] MEDS ORDERED: ATV/1 PO (04:36)
[2017-03-04] MEDS ORDERED: LACT1LOT3 TOP (04:36)
[2017-03-04] MEDS ORDERED: FENTANYL CITRATE INJ 50 MCG/1 ML 2 ML VIAL ONE (06:25)
--- NOTE | 2017-03-04 06:51 | DIAGNOSTIC IMAGING REPORT ---
L WRIST MIN 3 VIEWS ROUTINE CLINICAL HISTORY: fall - wrist deformity trauma. Pain. COMPARISON: None. DISCUSSION: Comminuted fractures distal radius and ulna. Distal radial fracture shows dorsal angulation with a mild degree of impaction. No evidence of dislocation. Angled fracture distal ulna. Generalized moderate soft tissue edema. IMPRESSION: Impacted/angled, and partially comminuted fractures of the distal radius and ulna. No evidence of dislocation. The above report was generated using voice recognition software. It may contain grammatical, syntax or spelling errors. Electronically signed by: Jovani Bonilla M.D. 03/04/2017 6:49 AM Dictated Date/Time: 03/04/2017 6:49 AM
[2017-03-04] MEDS ORDERED: OXYC-57 PO (07:17)
--- NOTE | 2017-03-04 07:19 | DIAGNOSTIC IMAGING REPORT ---
L WRIST MIN 3 VIEWS ROUTINE CLINICAL HISTORY: post reduction x-ray fracture COMPARISON: Earlier same date DISCUSSION: Improved alignment status post closed reduction. Comminuted fractures the distal radius and ulna. Improved dorsal angulation. Persistent mild impaction distal radius. Patient now casting material. There is no evidence for soft tissue swelling. IMPRESSION: Improved alignment post closed reduction. Mild persistent impaction and dorsal angulation. The above report was generated using voice recognition software. It may contain grammatical, syntax or spelling errors. Electronically signed by: Jovani Bonilla M.D. 03/04/2017 7:18 AM Dictated Date/Time: 03/04/2017 7:17 AM
[2017-03-04 07:32] VITALS: BP 152/85; PULSE 78; O2SAT 97
--- NOTE | 2017-03-04 10:01 | EMERGENCY ROOM VISIT NOTE ---
History Report prepared by Keenan: Ilsa Stovall Under the Supervision of: Dr. Bibi Bahena D.O. First contact with patient: 01:55 Chief Complaint: FALL Stated Complaint: FALL/HAND PAIN History of Present Illness The patient is a 76 year old female who presents to the Emergency Room with complaints of an episode of a fall occurring prior to arrival. The patient states that she was walking in her living room and forgot something in the kitchen. She reports that instead of turning around with her walker, she just tried to back up into the kitchen. She reports that when she did so she couldn' t stop and fell backwards. She reports that she tried to catch herself with her left hand. She states that she was too scared to get up on her own so she waited for EMS to arrive. The patient complains of left wrist pain. She states that the pain is worse with movement and better with elevation. She notes that it became swollen quickly. The patient denies back pain, neck pain, pain in her butt, hitting her head, loss of consciousness, and abdominal pain. The patient notes a history of a right hip replacement and Parkinson's disease. She notes she has had a Tetanus shot within the last 10 years. Source of History: patient Onset: prior to arrival Position: other (global) Quality: other (swollen) Timing: other (episode) Modifying Factors (Worsening): movement Modifying Factors (Relieving): elevation Associated Symptoms: No LOC, No neck pain, No abdominal pain, No back pain Note: The patient complains of left wrist pain. The patient denies pain in her butt. Review of Systems See HPI for pertinent positives & negatives. A total of 10 systems reviewed and were otherwise negative. Past Medical & Surgical Medical Problems: (1) CKD (chronic kidney disease), stage III (2) Depression (3) Dyslipidemia (4) Femoral fracture (5) Fracture of left hip requiring operative repair (6) GERD (gastroesophageal reflux disease) (7) HTN (hypertension) (8) Osteoporosis (9) Parkinson's disease Surgical Problems: (1) H/O cardiac catheterization (2) H/O colonoscopy (3) History of esophagogastroduodenoscopy (EGD) (4) History of hip replacement (5) History of hysterectomy (6) S/P tonsillectomy Family History No pertinent family history Social History Smoking Status: Never Smoker Alcohol Use: none Marital Status: Housing Status: lives with significant other Occupation Status: retired Current/Historical Medications Scheduled Alendronate Sodium (Fosamax), 70 MG PO WK Amlodipine (Norvasc), 5 MG PO DAILY Aspirin (Aspirin Ec), 81 MG PO HS Bupropion Hcl (Bupropion Hcl Er), 150 MG PO BID Calcium Carbonate-Cholecalcife (Calcium 600+D3 600-400 mg-Unit), 1 TAB PO DAILY Carbidopa/Levodopa (Sinemet 25MG/100MG), 2 TABS PO TIDM Docusate Sodium (Docusate Sodium), 100 MG PO BID Estrogens, Conjugated (Premarin), 0.5 GM PV UD Ferrous Gluconate (Ferrous Gluconate), 324 MG PO BIDM Lactic Acid (Ammonium Lactate) (Amlactin), 1 APPLN TOP DAILY Levothyroxine Sodium (Levothyroxine Sodium), 25 MCG PO DAILY Metoprolol Succ (Toprol Xl) (Toprol-Xl ), 100 MG PO DAILY Multiple Vitamins W/ Minerals (Womens One Daily), 1 TAB PO DAILY Quetiapine Fumarate (Seroquel), 12.5 MG PO QAM Quetiapine Fumarate (Seroquel), 25 MG PO HS Ranitidine Hcl (Zantac), 300 MG PO BID Simvastatin (Zocor), 10 MG PO QPM Scheduled PRN Albuterol (Ventolin Hfa), 2 PUFFS INH Q4H PRN for Wheezing Clonazepam (Klonopin), 0.5 MG PO TID PRN for Anxiety Tuhflfyw-Odexkuayurrv-Quwfeefx (Artificial Tears), 1 DROP OP TID PRN for Dry Eye (s) Lorazepam (Ativan), 1 MG PO once PRN for anxiety prior to mri Oxycodone/Acetaminophen 5MG/325MG (Percocet 5MG/325MG), 1 TABLET PO Q4H PRN for Pain Allergies Coded Allergies: Nitrofurantoin (Verified Allergy, Mild, Rash, 03/04/17) Physical Exam Vital Signs Date Time Temp Pulse Resp B/P (MAP) Pulse Ox O2 Delivery O2 Flow Rate FiO2 03/04/17 07:32 78 16 152/85 97 03/04/17 06:51 80 18 166/86 97 Room Air 03/04/17 06:41 87 03/04/17 04:13 85 20 101/51 95 Room Air 03/04/17 01:50 36.6 85 18 171/86 94 Room Air Physical Exam HEENT: Head - normocephalic and atraumatic Pupils are equal, round, and reactive to light. Extraocular eye muscles are intact, and sclera are anicteric. Nose - moist nasal mucosa without discharge. Mouth - moist buccal mucosa. Oropharynx is nonerythematous and there is no tonsillar exudate or edema noted. Neck: Supple; no JVD, nuchal rigidity, cervical lymphadenopathy. Heart: Regular rate and rhythm. There is a normal S1 and S2 with no murmurs, clicks, or gallops appreciated. Lungs: Clear to auscultation bilaterally with no wheezes, rales, or rhonchi. Abdomen: Soft, completely nontender, nondistended, with good bowel sounds. There are no palpable pulsatile masses or hepatosplenomegaly. There is no guarding, rigidity, or rebound noted. Extremities: No evidence of cyanosis or clubbing. There are easily palpable peripheral pulses. Left wrist is significantly deformed. Normal radial pulse. Superficial laceration to the third digit of the dorsal aspect. Good sensation, movement, and capillary refill. Skin: warm and dry with good turgor and no rashes. Medical Decision & Procedures ER Provider Diagnostic Interpretation: Radiology results as stated below per my review and the radiologist's interpretation: LEFT WRIST X-RAY: The results were interpreted by me. Convoluted and impacted distal radius. Distal ulnar fracture. L WRIST MIN 3 VIEWS ROUTINE CLINICAL HISTORY: post reduction x-ray fracture COMPARISON: Earlier same date DISCUSSION: Improved alignment status post closed reduction. Comminuted fractures the distal radius and ulna. Improved dorsal angulation. Persistent mild impaction distal radius. Patient now casting material. There is no evidence for soft tissue swelling. IMPRESSION: Improved alignment post closed reduction. Mild persistent impaction and dorsal angulation. The above report was generated using voice recognition software. It may contain grammatical, syntax or spelling errors. Electronically signed by: Jovani Bonilla M.D. 03/04/2017 7:18 AM Dictated Date/Time: 03/04/2017 7:17 AM Medications Administered Medications (Trade) Dose Ordered Sig/Shawna Route Start Time Stop Time Status Last Admin Dose Admin Fentanyl Citrate (Fentanyl Inj) 50 mcg NOW STAT IV 03/04/17 02:26 03/04/17 02:28 DC 03/04/17 02:32 50 MCG Fentanyl Citrate (Fentanyl Inj) 100 mcg STK-MED ONCE .ROUTE 03/04/17 06:25 03/04/17 06:26 DC 03/04/17 06:51 100 MCG Procedure 0226: Ordered Fentanyl Inj 50 mcg IV. 0625: Ordered Fentanyl Inj 100 mcg IV. Reduction of left wrist fracture: The procedure was explained to the patient and her family. She was verbally consented. The patient was given 100 g of IV fentanyl for pain management. One she experienced some relief of the discomfort, I manually reduced and aligned the fracture of the radius and ulna. With the help of nursing staff, Ortho-Glass splinting material was placed and molded. A postreduction x-ray was obtained which showed good alignment. The patient had good sensation to her fingertips and capillary refill after splinting. ED Course 0218: Past medical records reviewed. The patient was evaluated in room B3B. A complete history and physical exam was performed. 0226: Ordered Fentanyl Inj 50 mcg IV. The patient had plain films of the left wrist. 0344: I reevaluated the patient and she noted that she last ate at midnight. 0545: I discussed the patient's case with Dr. Vasquez - Orthopedics. He thinks it is okay to reduce it a little and splint it. Dr. Hampton will follow up with her today. 0548: I reevaluated the patient and updated her on the treatment plan. Case management spoke with the patient's family about appropriate follow-up. 0633: She was given 100 of Fentanyl. I performed a procedure to reduce and splint the patient's wrist. and will have a post reduction film done. 0717: Upon reevaluation, the patient is doing well. I discussed findings and results with her. She verbalized agreement of the treatment plan. The patient was discharged home. Medical Decision The patient is a 76 year old female who presents to the Emergency Room with complaints of an episode of a fall occurring prior to arrival. Differential diagnoses include wrist fracture, wrist sprain. This is a 76-year-old female who fell on an outstretched hand with a resulting dinner fork deformity of her left wrist. X-rays confirm a comminuted, angulated fracture of the distal radius ulna. This fracture is closed. The orthopedic surgeon recommended follow-up RICARDA with Dr. Hampton from [facility]. The manager performance's will make arrangements. The fracture was reduced and placed in Ortho-Glass splint material. The patient was neurovascularly intact before and after the reduction. Medication Reconcilliation Current Medication List: was personally reviewed by me Blood Pressure Screening Patient's blood pressure: Elevated blood pressure Blood pressure disposition: Elevated BP felt to be situational Consults Time Called: 05 Consulting Physician: Dr. Vasquez Returned Call: [phone] I discussed the patient's case with Dr. Vasquez - Orthopedics. He thinks it is okay to reduce it a little and splint it. Dr. Hampton will follow up with her today. Impression Primary Impression: Closed fracture distal radius and ulna Scribe Attestation The scribe's documentation has been prepared under my direction and personally reviewed by me in its entirety. I confirm that the note above accurately reflects all work, treatment, procedures, and medical decision making performed by me. Departure Information Dispostion Home / Self-Care Prescriptions Oxycodone/Acetaminophen 5MG/325MG (PERCOCET 5MG/325MG) Tab 1 TABLET PO Q4H Y for Pain, #14 TAB Prov: Bibi Bahena D.O. 03/04/17 Referrals Yesica Felix M.D. (PCP) Forms HOME CARE DOCUMENTATION FORM, IMPORTANT VISIT INFORMATION Patient Instructions My [facility] Additional Instructions Rest with the left wrist elevated and iced. Percocet - 1 tab every 4 hours for pain. Follow up with Dr. Hampton today Problem Qualifiers Primary Impression: Closed fracture distal radius and ulna Encounter type: initial encounter Laterality: left Qualified Codes: S52.502A - Unspecified fracture of the lower end of left radius, initial encounter for closed fracture; S52.602A - Unspecified fracture of lower end of left ulna, initial encounter for closed fracture
== END 2017-03-04 07:31 | disposition home or self-care (01) ==
LOC: EDBD 01:46 → C.EDB 01:47
DX: S52.502A Unspecified fracture of the lower end of left radius, initial encounter for closed fracture (principal); S52.602A Unspecified fracture of lower end of left ulna, initial encounter for closed fracture; W18.30XA Fall on same level, unspecified, initial encounter; Y93.01 Activity, walking, marching and hiking; Y99.8 Other external cause status; G20 Parkinson's disease; I12.9 Hypertensive chronic kidney disease with stage 1 through stage 4 chronic kidney disease, or unspecified chronic kidney disease; N18.3 Chronic kidney disease, stage 3 (moderate); M81.0 Age-related osteoporosis without current pathological fracture; K21.9 Gastro-esophageal reflux disease without esophagitis; E78.5 Hyperlipidemia, unspecified; F32.9 Major depressive disorder, single episode, unspecified; Z96.641 Presence of right artificial hip joint; Z90.710 Acquired absence of both cervix and uterus; Z90.89 Acquired absence of other organs; Z98.890 Other specified postprocedural states; Z79.82 Long term (current) use of aspirin; Z79.899 Other long term (current) drug therapy

== ENCOUNTER → 2017-03-06 | Outpatient (CLI) | payer OTHER ==
[~2017-03-06] MED LIST changes: +AMLO-110 PO; -AMLO-114 PO; +ATV/1 PO; +CALC-574 PO; +CLON0.5T3 PO; -CLR10 PO; +LACT1LOT3 TOP; -LVNIS40 SQ; +OXYC-57 PO; +PRMVC PV; +QUET1TAB30 PO; -RXC5 PO; +SIMV10TA2 PO; -SIMV20TA2 PO
== END | disposition home or self-care (01) ==
LOC: C.CPL 10:56
PROVIDERS: ATTEND Orthopaedic Surgery
DX: M25.532 Pain in left wrist (principal)